=== PATIENT | female | born 1990 | race Caucasian/White ===

== ENCOUNTER 2024-12-19 16:04 | Inpatient (IN) | payer OTHER, SELFPAY ==
--- OUTSIDE RECORDS SUMMARY | 2024-07-10 05:30 | XMS_ITS ---
Author Organization [facility] [address] Address [address] [place] [address] Care Team Providers Care Marketing Assistant Name Role Phone GEORGINA CAMPOS Unavailable [phone] Encounters Encounter Location Date Provider Diagnosis [facility] [address] [place] [address] 07/10/2024 CAMPOS ERICKSON Plan Of Treatment Next Appt Details Provider Name:KAYLIN SAMSON, 12/20/2024 08:45:00 AM, [address], [place], [address], Provider Name:CAMPOS ERICKSON, 12/23/2024 08:45:00 AM, [address], [place], [address], Progress Notes * Juany LAWRENCEOB:1990 (34 yo F)Acc No.[id number]:07/10/2024 Patient: Dandy RACHELRima Provider: Timothy ERICKSON PA-C :1990 A ge:33 Y S ex:Female Date:07/10/2024 Address:[address] [place] [address] Subjective: * Chief Complaints: * * Medical History: Objective: * Vitals: Assessment: Plan: * Treatment: * Images: Billing Information: * Visit Code: * Procedure Codes: * Electronic signature of ROXANA ERICKSON PA-C on 12/19/2024 at 07:02 PM EDT Sign off status: Pending * Provider: Timothy ERICKSON PA-C Date: 0 07/10/2024 Generated for Juanis vasquez/Kevin/Damian on: 0 12/19/2024 07:02 PM EDT
--- OUTSIDE RECORDS SUMMARY | 2024-07-18 06:30 | XMS_ITS ---
Author Organization [facility] [address] Address [address] [place] [address] Care Team Providers Care Car Retarder Operator Name Role Phone CAMPOS ERICKSON Unavailable [phone] Medications Medication SIG (Take, Route, Frequency, Duration) Notes Start Date End Date Status Multivitamin Women - 1 tab Orally daily; Duration: 30 days 03/04/2024 Active Magnesium Glycinate 100 MG 100 mg Orally daily; Duration: 90 days 06/10/2024 Active Probiotic 1-250 BILLION-MG 1 cap Orally daily; Duration: 30 days 06/10/2024 Active Vitamin D3 1.25 MG (37624 UT) 1 capsule Orally weekly; Duration: 90 days 06/10/2024 Active Fish Oil Converse-3 1000 MG 1 capsule Orall y daily; Duration: 30 days 06/10/2024 Active ProAir HFA 108 (90 Base) MCG/ACT 1 puff as needed Inhalation every 4 hrs; Duration: 30 days 01/14/2021 Active Magnesium Glycinate 100 MG 2 tab Orally bedtime; Duration: 30 days 03/04/2024 Active Contrave 8-90 MG WEEK 1: 1 PILL A.M., N/A P.M. WEEK 2: 1 PILL A.M., 1 PILL P.M. WEEK 3: 2 PILLS A.M., 1 PILL P.M. WEEK 4: 2 PILLS A.M., 2 PILLS P.M. Orally Twice a day; Duration: 30 days 06/10/2024 Active Encounters Encounter Location Date Provider Diagnosis [facility] [address] [place] [address] 07/18/2024 CAMPOS ERICKSON Plan Of Treatment Next Appt Details Provider Name:KAYLIN MALI, 12/20/2024 08:45:00 AM, [address], [place], [address], Provider Name:CAMPOS ERICKSON, 12/23/2024 08:45:00 AM, [address], [place], [address], Progress Notes * Juany LAWRENCEOB:1990 (34 yo F)Acc No.[id number]:07/18/2024 CPE Patient: Rima BENOIT Provider: Timothy ERICKSON PA-C :1990 A ge:33 Y S ex:Female Date:07/18/2024 Address:[address] [place] [address] Subjective: * Chief Complaints: * * Medical History: * Medications: T aking ProAir HFA 108 (90 Base) MCG/ACT Aerosol Solution 1 puff as needed Inhalation every 4 hrs , Taking Magnesium Glycinate 100 MG Capsule 2 tab Orally bedtime , Taking Multivitamin Women - Tablet 1 tab Orally daily , Taking Magnesium Glycinate 100 MG Capsule 100 mg Orally daily , Taking Vitamin D3 1.25 MG (50067 UT) Capsule 1 capsule Orally weekly , Taking Fish Oil Converse-3 1000 MG Capsule 1 capsule Orally daily , Taking Probiotic 1-250 BILLION-MG Capsule 1 cap Orally daily , Taking Contrave 8-90 MG Tablet Extended Release 12 Hour WEEK 1: 1 PILL A.M., N/A P.M. WEEK 2: 1 PILL A.M., 1 PILL P.M. WEEK 3: 2 PILLS A.M., 1 PILL P.M. WEEK 4: 2 PILLS A.M., 2 PILLS P.M. Orally Twice a day Objective: * Vitals: Assessment: Plan: * Treatment: * Procedure Codes: 9 9199 NO SHOW OFFICE VISIT * Images: Billing Information: * Visit Code: * Procedure Codes: 44414 NO SHOW OFFICE VISIT. Care Plan Details* * Electronic signature of ROXANA ERICKSON PA-C on 12/19/2024 at 07:02 PM EDT Sign off status: Pending * Provider: Timothy ERICKSON PA-C Date: 0 07/18/2024 Generated for Juanis vasquez/Kevin/Damian on: 0 12/19/2024 07:02 PM EDT
--- OUTSIDE RECORDS SUMMARY | 2024-07-30 10:45 | XMS_ITS ---
Author Organization [facility] [address] [address] Address [address] [place] [address] Care Team Providers Care Transit Specialist Name Role Phone GEORGINA CAMPOS Unavailable [phone] Encounters Encounter Location Date Provider Diagnosis [facility] [address] [place] [address] 07/30/2024 CAMPOS ERICKSON Plan Of Treatment Next Appt Details Provider Name:KAYLIN SAMSON, 12/20/2024 08:45:00 AM, [address], [place], [address], Provider Name:CAMPOS ERICKSON, 12/23/2024 08:45:00 AM, [address], [place], [address], Progress Notes * LAWRENCEEmanuelGeovanyOB:1990 (34 yo F)Acc No.[id number]:07/30/2024 Patient: Rima BENOIT Provider: Timothy ERICKSON PA-C :1990 A ge:33 Y S ex:Female Date:07/30/2024 Address:[address] [place] [address] Subjective: * Chief Complaints: * * Medical History: Objective: * Vitals: Assessment: Plan: * Treatment: * Procedure Codes: 9 9199 NO SHOW OFFICE VISIT * Images: Billing Information: * Visit Code: * Procedure Codes: 53136 NO SHOW OFFICE VISIT. * Electronic signature of ROXANA ERICKSON PA-C on 12/19/2024 at 07:02 PM EDT Sign off status: Pending * Provider: Timothy ERICKSON PA-C Date: 0 07/30/2024 Generated for Juanis vasquez/Kevin/Damian on: 0 12/19/2024 07:02 PM EDT
[2024-12-19] VITALS (10 sets, daily range): BP systolic 95–156; BP diastolic 44–76; PULSE 101–120; RESP 17–26; TEMP 37.2–40.4; O2SAT 95–98; BMI 47.5
--- NOTE | ~2024-12-19 | MR_ITS ---
EXAMINATION: MR BRAIN WITHOUT IV CONTRAST HISTORY: AMS, fever TECHNIQUE: Sagittal T1, and axial T1, FLAIR, T2, gradient echo, and diffusion weighted MR images of the brain were obtained. COMPARISON: Correlation is made with an unenhanced head CT dated 12/19/2024. FINDINGS: The pituitary is normal in size. The cerebellar tonsils are normally located. The brain parenchyma is unremarkable, demonstrating normal arrieta/white differentiation. No foci of abnormal signal intensity are identified. The ventricular system is normal in size and configuration. There is no mass effect or midline shift. No intra or extra-axial fluid collections are identified. There are no foci of restricted diffusion. Normal vascular flow voids are noted in the basilar and carotid arteries. There is a polyp versus mucous retention cyst in the right maxillary sinus. The visualized paranasal sinuses are otherwise clear. MR/MR head/brain wo con IMPRESSION: Unremarkable MRI of the brain without contrast. Electronically signed by: Vinny Holland MD 12/20/2024 12:35 PM EDT
--- NOTE | ~2024-12-19 | XR_ITS ---
CLINICAL HISTORY: ams 1 view chest x-ray Comparison: None provided Findings: No consolidation or effusion. Prominent cardiac silhouette. No acute fracture. IMPRESSION: 1. No acute findings. This document has been electronically signed by: Afshin Rosario MD on 12/19/2024 18:19:41
--- NOTE | ~2024-12-19 | CT_ITS ---
CLINICAL HISTORY: headache CT head without contrast Comparison: None provided Findings: No intra-axial mass, midline shift, hydrocephalus, or acute hemorrhage. Empty sella is demonstrated, nonspecific. No significant atrophy-like change or white matter disease. There is no sinus or mastoid fluid. The orbits are within normal limits. No skull fracture. IMPRESSION: 1. No acute intracranial findings. This document has been electronically signed by: Afshin Rosario MD on 12/19/2024 19:30:10
--- NOTE | ~2024-12-19 | CT_ITS ---
CLINICAL HISTORY: tachy fever sob --- Additional Notes or Special Instructions: r o pe CT angiography chest with contrast. 3D Postprocessing. Comparison: None provided Findings: Motion and streak artifact limit evaluation. The heart is normal size. RV/LV ratio is normal. Unremarkable thoracic aorta and great vessels. No aneurysm. No pulmonary artery filling defects. Diffuse esophageal mural thickening, nonspecific. Mildly prominent axillary nodes may be reactive however are nonspecific Atelectasis.No significant pleural effusion or pneumothorax. Hepatomegaly with steatosis Cholelithiasis. Colonic diverticulosis. No acute fractures. IMPRESSION: No evidence of PE. This document has been electronically signed by: Afshin Rosario MD on 12/19/2024 19:33:14
--- NOTE | 2024-12-19 16:05 | ECG_ITS ---
Test Reason : ALTER MENTAL Blood Pressure : */* mmHG Vent. Rate : 115 BPM Atrial Rate : 115 BPM P-R Int : 150 ms QRS Dur : 80 ms QT Int : 300 ms P-R-T Axes : 72 87 28 degrees QTcB Int : 415 ms Sinus tachycardia Otherwise normal ECG No previous ECGs available Referred By: Generic ED Physician Electronically Signed By: EVELIO PAUL MD
--- NOTE | 2024-12-19 16:11 | ED_ITS ---
HPI - General Adult General Chief complaint: Fever Stated complaint: syncopal episode Time Seen by Provider: 12/19/24 16:10 Source: patient Mode of arrival: ambulatory Limitations: altered mental status History of Present Illness ED Provider: Natalie avina HPI narrative: 34-year-old female here today past medical history PCOS and anxiety. Here today sick 3 days at home came to the hospital was trying to find the emergency department's states her GPS she was lost. She has had a fever and chills chest pain and shortness of breath. She states she has had a headache. No sick contacts at home. Gradual onset of symptoms. Patient also complaining of body aches. Denies any nauseousness or vomiting. Related Data Allergies Allergy/AdvReac Type Severity Reaction Status Date / Time No Known Allergies Allergy Verified 12/19/24 16:09 Review of Systems 2 Review of Systems: Constitutional : + Fever, No Chills ENT/Mouth : No sore throat, No Rhinorrhea Eyes: No Eye Pain, No Swelling, No Redness Cardiovascular : No Chest Pain,+ SOB Respiratory : No Cough, No Sputum Gastrointestinal : No Nausea, No Vomiting, No Diarrhea, No abdominal Pain Genitourinary : No Dysuria, No Hematuria Musculoskeletal : No joint pain, No Myalgias, No Joint Swelling Skin : No Skin Lesions, positive skin rash Neuro : No Weakness, No Numbness, No Headache All other systems reviewed and are negative PMFSH Social History Social History Smoked in Last 30 Days: No Use of substances other than those prescribed or required for medical reasons: No Advance Directives: No Advance Directives Information Provided: Yes Physical Exam ED Exam Exam: Appearance: Alert. Oriented X3. No acute distress. And 104.7. Patient answering questions appropriately Eyes: Pupils equal, round and reactive to light. ENT: Pharynx normal. Neck: Normal inspection. Neck supple. CVS: Tachycardic Pulses normal. Respiratory: No respiratory distress. Breath sounds normal. Abdomen: Soft and nontender. non distender normal BS Skin: Skin warm and dry. Normal skin color. Extremities: No lower extremity edema. No calf ttp FROM of extemities Neuro: Oriented X 3. Vital Signs: Vital Signs - 24 hr 12/19/24 16:07 12/19/24 18:06 12/19/24 18:55 Temperature 104.7 F H 102.5 F H 101.5 F H Pulse Rate 120 H 117 H 103 H Respiratory Rate 20 18 20 Blood Pressure 156/72 H 113/76 110/71 Pulse Oximetry 98 95 97 Oxygen Delivery Method Room Air Room Air Room Air BMI result Body Mass Index 47.5 Medications Administered Discontinued Medications Generic Name Dose Route Start Last Admin Trade Name Freq PRN Reason Stop Dose Admin Ceftriaxone Sodium 2 gm 12/19/24 16:31 12/19/24 16:52 Ceftriaxone Sodium 2 Gm Vial IVPUSH 12/19/24 16:32 2 gm ONCE ONE Administration Lactated Ringer's 3,870 mls @ 3,870 mls/hr 12/19/24 16:23 12/19/24 16:52 Lr 30 ml/kg infuse over 1 hr (3870 ml) 12/19/24 17:22 3,870 mls/hr IV Administration .Q1H ONE Vancomycin HCl 2,000 mg in 500 mls @ 250 mls/hr 12/19/24 16:31 12/19/24 17:54 Vancomycin/Ns IV 12/19/24 18:30 250 mls/hr ONCE ONE Administration Acetaminophen 1,000 mg in 100 mls @ 400 mls/hr 12/19/24 16:47 12/19/24 17:11 Ofirmev IV 12/19/24 17:01 Infused ONCE ONE Infusion Ibuprofen 800 mg 12/19/24 20:13 12/19/24 20:27 Ibuprofen 800 Mg Tablet PO 12/19/24 20:14 800 mg ONCE ONE Administration Iohexol 100 ml 12/19/24 18:48 12/19/24 18:48 Iohexol 350 Mg/Ml 100 Ml Infus..Btl IV 12/19/24 18:49 65 ml ONCE ONE Administration Medical Decision Making Medical Decision Making MDM Narrative: Patient is a 34-year-old female here today with slightly confused on arrival tachycardic and febrile. Who met sepsis protocol. Her white blood cell count is 3. Cooling blanket was applied along with ice packs. She was tachy in the 120s. Blood pressure 156/72. Sepsis protocol low at ordered 30 cc per weight. Patient weighs 129 kg. She is answering questions appropriately. Patient covered for sepsis with ceftriaxone and vancomycin per weight based. Patient awaiting CTA of chest to rule out pneumonia versus PE along with head CT. This patient was altered on arrival. Discussed LP at this time. Patient adamantly declining that she is going to have an LP. Discussed with her we will wait for the other results to come back in and we will review his visit LP if we needed to if we do not find a source of her fever. Patient was cathed UA pending. COVID and flu negative consulted with my supervising physician. Patient's blood pressure is 110/71 heart rate is 103 habit is 101.5 I ordered 800 mg p.o. Motrin. Patient adamantly declining to have a LP. She is alert and oriented at this time in a capacity to make her own decisions. Discussed risk and benefits with patient. She states that she is going to think about it but declining at this time Differential Diagnosis Pneumonia UTI Sepsis PE Meningitis COVID-19 Lab Data 12/19/24 16:42 12/19/24 16:42 Labs: Lab Results 12/19/24 12/19/24 Range/Units 16:42 17:48 WBC 3.0 L (4.8-10.8) X10*3/uL RBC 4.54 (4.20-5.50) X10*6/uL Hgb 12.6 (12.0-16.0) g/dl Hct 37.0 (37.0-47.0) % MCV 81.5 (80.0-98.0) fL MCH 27.8 (27.0-33.0) pg MCHC 34.1 (31.0-35.0) g/dl RDW 13.1 (11.0-16.0) % Plt Count 154 L (160-400) X10*3/uL MPV 12.2 (9.4-12.3) fL Immature Gran % (Auto) 0.3 (0.0-0.4) % Neut % (Auto) 64.8 (45-73) % Lymph % (Auto) 18.8 L (20-40) % [place] % (Auto) 11.1 H (2-11) % Eos % (Auto) 4.7 H (0-4) % Baso % (Auto) 0.3 (0-2) % Lymph # (Auto) 0.6 L (1.2-4.9) X10*3/uL [place] # (Auto) 0.3 (0.1-1.2) X10*3/uL Eos # (Auto) 0.1 (0.0-0.4) X10*3/uL Baso # (Auto) 0.0 (0.0-0.2) X10*3/uL Abs Immat Gran (auto) 0.01 (0.00-0.03) X10*3/uL Absolute Neuts (auto) 1.9 L (2.0-8.3) x10*3/uL Absolute Nucleated RBC 0.000 (0.0-0.012) X10*3/uL Nucleated RBC % (auto) 0.0 (0.0-0.2) /100WBC Sodium 139 (135-145) mmol/L Potassium 4.0 (3.3-5.1) mmol/L Chloride 109 H (96-108) mmol/L Carbon Dioxide 20 L (22-29) mmol/L Anion Gap 14 (12-20) BUN 9 (9-16) mg/dL Creatinine 0.86 (0.5-1.4) mg/dL Estim Creat Clear Calc 123.9 Estimated GFR > 60 Random Glucose 92 (60-115) mg/dL Lactic Acid 1.1 (0.5-2.0) mmol/L Calcium 9.0 (8.4-10.2) mg/dL Total Bilirubin 0.4 (0.0-1.0) mg/dL AST 48 H (5-31) U/L ALT 52 H (0-31) U/L Alkaline Phosphatase 79 (39-117) U/L Troponin I High Sens < 2.7 (<3.5-17.0) ng/L Total Protein 7.5 (6.5-8.0) g/dL Albumin 4.2 (3.5-5.0) g/dL Beta HCG, Quant < 2 mIU/mL Urine Color Yellow Urine Appearance Clear Urine pH 7.0 (5.0-9.0) Ur Specific Serena 1.015 (1.005-1.025) Urine Protein Negative (Neg-Trace) mg/dL Urine Glucose (UA) Negative (Negative) mg/dL Urine Ketones Negative (Negative) mg/dL Urine Blood Negative (Negative) Urine Nitrite Negative (Negative) Ur Leukocyte Esterase Negative (Negative) Urine Test NEGATIVE (NEGATIVE) Urine Opiates Screen Not Detected (Not Detect) Ur Buprenorphine Scrn Not Detected (Not Detect) ng/mL Ur Oxycodone Screen Not Detected (Not Detect) ng/mL Urine Methadone Screen Not Detected (Not Detect) ng/mL Urine Fentanyl Screen Not Detected (Not Detect) Ur Barbiturates Screen Not Detected (Not Detect) Ur Phencyclidine Scrn Not Detected (Not Detect) Ur Amphetamines Screen Not Detected (Not Detect) U Benzodiazepines Scrn Not Detected (Not Detect) Urine Cocaine Screen Not Detected (Not Detect) U Marijuana (THC) Screen Not Detected (Not Detect) Ethyl Alcohol < 10 mg/dL COVID-19 (DEVANTE) Negative (Negative) COVID-19 Clin Com See Note Influenza Type A (PATSY) Negative (Negative) Influenza Type B (PATSY) Negative (Negative) Influenza A & B Note See Note Discharge Plan Discharge Clinical Impression: Fever, Tachycardia, Altered mental status Patient Disposition: Admitted As Inpatient Print Language: Malagasy
[2024-12-19 16:52] LABS: MANUAL DIFF FLAG NO
[2024-12-19] MEDS: LACTATED RINGERS 3870 ML IV (16:52)
[2024-12-19 16:53] LABS: Hematocrit 37.0 % (37.0-47.0); Hemoglobin 12.6 g/dl (12.0-16.0); Imm Gran Abs Auto 0.01 X10*3/uL (0.00-0.03); Imm Gran Pct Auto 0.3 % (0.0-0.4); Lymphocytes Absolute Auto 0.6 X10*3/uL (1.2-4.9); Mean Corpuscular HGB Conc 34.1 g/dl (31.0-35.0); Mean Corpuscular Hemoglobin 27.8 pg (27.0-33.0); Mean Corpuscular Volume 81.5 fL (80.0-98.0); NRBC Abs Auto 0.000 X10*3/uL (0.0-0.012); NRBC Pct Auto 0.0 /100WBC (0.0-0.2); Platelet Count 154 X10*3/uL (160-400); Red Blood Count 4.54 X10*6/uL (4.20-5.50); White Blood Count 3.0 X10*3/uL (4.8-10.8)
[2024-12-19 17:07] LABS: Alanine Aminotransferase 52 U/L (0-31); Albumin Level 4.2 g/dL (3.5-5.0); Alkaline Phosphatase 79 U/L (39-117); Anion Gap 14 (12-20); Aspartate Amino Transferase 48 U/L (5-31); Blood Urea Nitrogen 9 mg/dL (9-16); Calcium 9.0 mg/dL (8.4-10.2); Carbon Dioxide 20 mmol/L (22-29); Chloride 109 mmol/L (96-108); Creatinine Clr Calc Pharmacy 123.9; Estimated Glomerular Filt Rate > 60; Potassium 4.0 mmol/L (3.3-5.1); Sodium 139 mmol/L (135-145); Total Protein 7.5 g/dL (6.5-8.0)
[2024-12-19 17:09] LABS: COVID-19 Test Negative (Negative); IDNOW Serial# 55D5AD1C
[2024-12-19 17:12] LABS: IDNOW Serial# 58CA691E; Influenza B2 Negative (Negative)
--- NOTE | 2024-12-19 17:12 | PC.NURSE ---
patient presents to the ED as outpatient response to hospital lobby, noted to be leaning on window unresponsive. patient noted to have altered mental status, alert to self, place and time but keeps repeating same questions and asking for help. patient noted to be warm and diaphoretic, patient states she has chest pain and a crushing headache x3days. IV access obtained in the patient left hand #22, medicated per JUN. patient placed on cooling blanket for cooling measures and rectal temp of 104.7. additional IV access obtained in the right upper arm #20. labs drawn and obtained. patient noted to be in normal sinus rhythm. straight cath performed by this RN.
[2024-12-19 17:20] LABS: Troponin-I High Sensitivity < 2.7 ng/L (<3.5-17.0)
[2024-12-19] MEDS: vancomycin/NS 2,000 MG/500 ML PLAST..BAG 250 MG IV (17:54)
[2024-12-19 18:08] LABS: Appearance Urine Clear; Glucose Urine UA Negative (Negative); PH 7.0 (5.0-9.0); Specific Gravity - Urine 1.015 (1.005-1.025); UPreg QC Valid YES
[2024-12-19 18:13] LABS: Cannabinoid Screen Urine Not Detected (Not Detect)
[2024-12-19] MEDS: iohexoL 350 MG/ML 100 ML INFUS..BTL IV (18:48)
--- NOTE | 2024-12-19 18:55 | PC.NURSE ---
patient back from ct scan, assisted with bed hein patient voided. patient states she no longer has a headache or chest pain. patient is more alert and oriented, family at bedside for support. patient remains tachycardic low 100s. patient is on cooling blanket, temp 101.5
--- OUTSIDE RECORDS SUMMARY | 2024-12-19 19:03 | XMS_ITS | Clinical Summary ---
Author Organization [facility] Address [address] [address] Phone Care Team Providers Care Roofing Machine Tender Name Role Phone Joel Alonso MD Primary Care Provider Social History Tobacco Use Types Packs/Day Years Used Date Smoking Tobacco: Never Assessed Education Answer Date Recorded Are you interested in more education? Not on ingrid e 08/06/2022 Are you concerned about learning? Not on file 08/06/2022 No 08/06/2022 No 08/06/2022 Digital Access Answer Date Recorded No 09/04/2022 No 09/04/2022 No 09/04/2022 Reliable internet access at home? Not on file 09/04/2022 Device with a working camera? Not on file Comments Unknown Sex and Gender Information Value Date Recorded Sex Assigned at Not on file Legal Sex Female 3:49 PM EST Gender Identity Not on file Sexual Orientation Not on file Plan of Treatment Health Maintenance Due Date Last Done Comments Adult Td,Tdap Booster 1989 DEPRESSION SCREENING 2001 SMOKING Hx and SMOKELESS TOB ACCO SCREENING 2002 HEPATITIS C SCREENING 08/22/2007 HIV ONE-TIME SCREENING (18-6 5 YEARS) 08/22/2007 PAP SMEAR 2010 INFLUENZA VACCINE (#1) 2024 COVID-19 VACCINE (2023-2 5 season) 2024 HEPATITIS A VACCINES Aged Out No long er eligible based on patient's age to complete this topic HIB VACCINES Aged Out No longer eligi ble based on patient's age to complete this topic MENINGOCOCCAL VACCINES (ACWY) Aged Out No longer eligible based on patient's age to complete this topic MENINGOCOCCAL VACCINES (B) Aged Out N o longer eligible based on patient's age to complete this topic PNEUMOCOCCAL VACCINES (0-49 years) Aged Out No longer eligible based on patient's age to complete this topic Medical Devices Not on file Insurance Care Teams Roofing Machine Tender Relationship Specialty Start Date End Date Joel Alonso MD [address] [place] [id number] PCP - General Internal Medicine 06/16/22 Additional Source Comments The information contained in this document represents components of the legal health record. It is not the complete legal health record.[facility]
--- OUTSIDE RECORDS SUMMARY | 2024-12-19 19:03 | XMS_ITS | Patient Health Record ---
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 Metabolic Panel ([id number] Reviewed date:03/14/2024 08:25:36 AM Interpretation: Performing Lab:[facility] [place], [address] [place] [address], [place], Phone - [phone], Director - Rosanne Notes/Report: Test(s) 469821-Pwupxrfupcfv, Total, LC/MS was developed and its performance characteristics determined by [facility]. It has not been cleared or approved by the Food and Drug Administration. Glucose 104 70-99 mg/dL BUN 8 6-20 mg/dL Creatinine 0.75 0.57-1.00 mg/dL eGFR 107 >59 mL/min/1.73 BUN/Creatinine Ratio 11 9-23 Sodium 141 134-144 mmol/L Potassium 4.5 3.5-5.2 mmol/L Chloride 105 96-106 mmol/L Carbon Dioxide, Total 22 20-29 mmol/L Calcium 9.3 8.7-10.2 mg/dL Protein, Total 7.3 6.0-8.5 g/dL Albumin 4.1 3.9-4.9 g/dL Globulin, Total 3.2 1.5-4.5 g/dL Bilirubin, Total 0.5 0.0-1.2 mg/dL Alkaline Phosphatase 97 44-121 IU/L AST (SGOT) 29 0-40 IU/L ALT (SGPT) 32 0-32 IU/L Lipid Panel-[id number] Reviewed date:03/14/2024 08:25:36 AM Interpretation: Performing Lab:[facility] [place], [address] [place] [address], Phone - [phone], Director - Rosanne Notes/Report: Test(s) 390845-Lbpmjxzpzbft, Total, LC/MS was developed and its performance characteristics determined by [facility]. It has not been cleared or approved by the Food and Drug Administration. Cholesterol, Total 219 100-199 mg/dL Triglycerides 152 0-149 mg/dL HDL Cholesterol 44 >39 mg/dL VLDL Cholesterol Adryan 27 5-40 mg/dL LDL Chol Calc (NIH) 148 0-99 mg/dL Vitamin D, 47-Vgvqirl-[id number] Reviewed date:03/14/2024 08:25:36 AM Interpretation: Performing Lab:[facility] [place], [address] [place] [address], Phone - [phone], Director - Rosanne Notes/Report: Test(s) 607018-Fgqtywmkxbca, Total, LC/MS was developed and its performance characteristics determined by [facility]. It has not been cleared or approved by the Food and Drug Administration. Vitamin D, 25-Hydroxy 13.1 30.0-100.0 ng/mL Vitamin D deficiency has been defined by the [place] [employer] and an Endocrine Society practice guideline as a level of serum 25-OH vitamin D less than 20 ng/mL (1,2). The Endocrine Society went on to further define vitamin D insufficiency as a level between 21 and 29 ng/mL (2). 1. IOM ([place] of [employer]). 2010. Dietary reference intakes for calcium and D. [place]: The National Academies Press. 2. Roberto MF, Maco [place], Lauren GONZALES, et al. Evaluation, treatment, and prevention of vitamin D deficiency: an Endocrine Society clinical practice guideline. JCEM. 2010; 96(7):1911-30. Testosterone, Free+Total LC/ MS-[id number] Reviewed date:03/14/2024 08:25:36 AM Interpretation: Performing Lab:[facility] [place], [address] [place] [address], [place], Phone - [phone], Director - Rosanne Notes/Report: Test(s) 965173-Vmpkpaaobmgo, Total, LC/MS was developed and its performance characteristics determined by [facility]. It has not been cleared or approved by the Food and Drug Administration. Testosterone, Total, LC/MS 20.9 10.0-55.0 ng/d L Free Testosterone(Direct) 0.7 0.0-4.2 pg/mL CBC With Differential/Platel et-[id number] Reviewed date:03/14/2024 08:25:36 AM Interpretation: Performing Lab:[facility], [address] [place] [address], [place], Phone - [phone], Director - Rosanne Notes/Report: Test(s) 369936-Ooqjitvjhnbs, Total, LC/MS was developed and its performance characteristics determined by [facility]. It has not been cleared or approved by the Food and Drug Administration. WBC 7.1 3.4-10.8 x10E3/uL Effective March 11, 2024 profile [id number] WBC will be made non-orderable as a stand-alone order code. RBC 4.49 3.77-5.28 x10E6/uL Hemoglobin 12.7 11.1-15.9 g/dL Hematocrit 40.3 34.0-46.6 % MCV 90 79-97 fL MCH 28.3 26.6-33.0 pg MCHC 31.5 31.5-35.7 g/dL RDW 13.3 11.7-15.4 % Platelets 218 150-450 x10E3/uL Neutrophils 61 Not Estab. % Lymphs 31 Not Estab. % Monocytes 5 Not Estab. % Eos 3 Not Estab. % Basos 0 Not Estab. % Neutrophils (Absolute) 4.3 1.4-7.0 x10E3/uL Lymphs (Absolute) 2.2 0.7-3.1 x10E3/uL Monocytes(Absolute) 0.3 0.1-0.9 x10E3/uL Eos (Absolute) 0.2 0.0-0.4 x10E3/uL Baso (Absolute) 0.0 0.0-0.2 x10E3/uL Immature Granulocytes 0 Not Estab. % Immature Grans (Abs) 0.0 0.0-0.1 x10E3/uL Estradiol-067574 Reviewed date:03/14/2024 08:25:36 AM Interpretation: Performing Lab:[facility] [address], Phone - [phone], Director - [facility] Notes/Report: Test(s) 609032-Cyrvxirikyha, Total, LC/MS was developed and its performance characteristics determined by [facility]. It has not been cleared or approved by the Food and Drug Administration. Estradiol 24.8 Adult Female Range Follicular phase 12.5 - 166.0 Ovulation phase 85.8 - 498.0 Luteal phase 43.8 - 211.0 Postmenopausal <6.0 - 54.7 1st trimester 215.0 - >4300.0 Abimael ECLIA methodology Insulin-[id number] Reviewed date:03/14/2024 08:25:36 AM Interpretation: Performing Lab:[facility], Phone - [phone], Director - [facility] Notes/Report: Test(s) 596315-Vrefijmwhwuu, Total, LC/MS was developed and its performance characteristics determined by [facility]. It has not been cleared or approved by the Food and Drug Administration. Insulin 30.2 2.6-24.9 uIU/mL Progesterone-687724 Reviewed date:03/14/2024 08:24:50 AM Interpretation: Performing Lab:[facility], Phone - [phone], Director - [facility] Notes/Report: Test(s) 670178-Qkefghycdutf, Total, LC/MS was developed and its performance characteristics determined by [facility]. It has not been cleared or approved by the Food and Drug Administration. Progesterone 0.3 Follicular phase 0.1 - 0.9 Luteal phase 1.8 - 23.9 Ovulation phase 0.1 - 12.0 First trimester 11.0 - 44.3 Second trimester 25.4 - 83.3 Third trimester 58.7 - 214.0 Postmenopausal 0.0 - 0.1 TSH-[id number] Reviewed date:03/14/2024 08:25:36 AM Interpretation: Performing Lab:[facility] [address], Phone - [phone], Director - [facility] Notes/Report: Test(s) 707788-Mwsasmwlqmlk, Total, LC/MS was developed and its performance characteristics determined by [facility]. It has not been cleared or approved by the Food and Drug Administration. TSH 2.320 0.450-4.500 uIU/mL Urinalysis, Complete-[id number] Reviewed date:03/14/2024 08:25:36 AM Interpretation: Performing Lab:[facility] [address], Phone - [phone], Director - Rosanne Notes/Report: Test(s) 747387-Aemnhtqafwhu, Total, LC/MS was developed and its performance characteristics determined by [facility]. It has not been cleared or approved by the Food and Drug Administration. Test(s) 790736-Naemorpbtzzm, Total, LC/MS was developed and its performance characteristics determined by [facility]. It has not been cleared or approved by the Food and Drug Administration. Specific [place] 1.015 1.005-1.030 pH 6.0 5.0-7.5 Urine-Color Yellow Yellow Appearance Clear Clear WBC Esterase Negative Negative Protein Negative Negative/Trace Glucose Negative Negative Ketones Negative Negative Occult Blood Negative Negative Bilirubin Negative Negative Urobilinogen,Semi-Qn 0.2 0.2-1.0 mg/dL Nitrite, Urine Negative Negative Microscopic Examination Micr oscopic follows if indicated. Microscopic Examination See below: Micr oscopic was indicated and was performed. WBC None seen 0 - 5 /hpf RBC None seen 0 - 2 /hpf Epithelial Cells (non renal) 0-10 0 - 10 /hpf Casts None seen None seen /lpf Bacteria Few None seen/Few Hemoglobin P8p-[id number] Reviewed date:03/14/2024 08:25:36 AM Interpretation: Performing Lab:[facility] [address], [place], Phone - [phone], Director - Rosanne Notes/Report: Test(s) 219529-Qnltecebxfiw, Total, LC/MS was developed and its performance characteristics determined by [facility]. It has not been cleared or approved by the Food and Drug Administration. Hemoglobin A1c 5.8 4.8-5.6 % . 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 She provided the office phone number: [phone], sander desouza 06/06/2024 11:37:40 AM >fax # [email or web address] [phone], Winnie Wilkerson 06/07/2024 09:58:38 AM >Faxed labs, notes and referral to pt as well, Serjio Dunhamlam 06/13/2024 02:30:37 PM > I called the office, and they informed me that they have reached out to the patient, but she has not returned their call to schedule an appointment. Referral Priority Routine Medications Medication SIG (Take, Route, Frequency, Duration) Notes Start Date End Date Status Multivitamin Women - 1 tab Orally daily; Duration: 30 days 03/04/2024 Active Magnesium Glycinate 100 MG 100 mg Orally daily; Duration: 90 days 06/10/2024 Active ProAir HFA 108 (90 [...] a day; Duration: 30 days 06/10/2024 Active Probiotic 1-250 BILLION-MG 1 cap Orally daily; Duration: 30 days 06/10/2024 Active Vitamin D3 1.25 MG (20864 UT) 1 capsule Orally weekly; Duration: 90 days 06/10/2024 Active Fish Oil [place]-3 1000 MG 1 capsule Orall y daily; Duration: 30 days 06/10/2024 Active Social History Tobacco Use: Social History Observation Description Date Details (start date - stop date) Never Smoker NA - NA Tobacco Use/Smoking Question Answer Notes Are you a nonsmoker Section Notes: Declines tobacco use 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 Declines tobacco use Declines tobacco use Declines tobacco 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 Declines tobacco use Declines tobacco use 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 Problems Problem Type SNOMED Code ICD Code Onset Dates Problem Status W/U Status Risk Notes Problem Vitamin D deficiency (42338203) Vitamin D deficiency, unspecified (E55.9) Active confirmed Problem Status migrainosus (235620425) Migraine, unspecified, not intractable, with status migrainosus (G43.901) Active confirmed Problem Endocrine/metabolic screening (583993460) Encounter for screening for other suspected endocrine disorder (Z13.29) Active confirmed Problem Morbid obesity (195353390) Morbid obesity (E66.01) Active confirmed Problem Fatigue (06301148) Fatigue, unspecified type (R53.83) Active confirmed Problem Vitamin D deficiency (63171943) Vitamin D deficiency (E55.9) Active confirmed Problem COVID-19 (556793708) COVID-19 (U07.1) Active confirmed Problem Body mass index 40+ - severely obese (982233803) Body mass index [BMI] 45.0-49.9, adult (Z68.42) Active confirmed Problem Hyperinsulinemia (79479688) Hyperinsulinemia (E16.1) Active confirmed Problem Polycystic ovary syndrome (disorder) (989407438) PCOS (polycystic ovarian syndrome) (E28.2) Active confirmed Problem Body mass index 40+ - severely obese (601547741) BMI 45.0-49.9, adult (Z68.42) Active confirmed Problem Body mass index 40+ - severely obese (838161659) Body mass index [BMI] 40.0-44.9, adult (Z68.41) Active confirmed Problem Insulin resistance (516520719) Insulin resistance (E88.81) Active confirmed Problem Asthma (710873327) Asthma (J45.909) Active conf irmed Problem Morbid obesity (203897848) Obesity, Class III, BMI 40-49.9 (morbid obesity) (E66.01) Active confirmed Problem Insulin resistance (936570995) Insulin resistance (E88.819) Active confirmed Problem Migraine variant with headache (disorder) (189217507) Migraine headache (G43.909) Active confirmed Vital Signs Heart Rate 94 /min 06/10/2024 Blood pressure diastolic 74 mm Hg 06/10/2024 Oximetry 94 % 06/10/2024 Height 64 in 06/10/2024 Blood pressure systolic 124 mm Hg 06/10/2024 Weight 277.2 lbs 06/10/2024 BMI 47.58 kg/m2 06/10/2024 Encounters Encounter Location Date Provider Diagnosis [facility] [address] [place] [address] 07/30/2024 CAMPOS ERICKSON [facility] [address] [place], [place] 03/04/2024 CAMPOS ERICKSON Morbid obesity E66.0 1 ; Obesity, Class III, BMI 40-49.9 (morbid obesity) E66.01 ; Insulin resistance E88.819 ; PCOS (polycystic ovarian syndrome) E28.2 and Migraine headache G43.[address] [facility] [address] [place] [address] 06/10/2024 CAMPOS ERICKSON Morbid obesity E66.0 1 ; Obesity, Class III, BMI 40-49.9 (morbid obesity) E66.01 ; Insulin resistance E88.819 ; PCOS (polycystic ovarian syndrome) E28.2 ; Migraine headache G43.909 and Vitamin D deficiency E55.[address] [facility] [address] [place] [address] 01/17/2024 KOKO MULLEN [facility] [address] [place] [address] 02/27/2024 KOKO MULLEN [facility] [address] [facility] [address] [place] [address] 06/06/2024 CAMPOS ERICKSON [facility] [address] [place] [address] 06/07/2024 CAMPOS ERICKSON PCOS (polycystic ovarian syndrome) E28.2 ; Morbid obesity E66.01 ; Vitamin D deficiency, unspecified E55.9 and Adult general medical exam Z00.00 [facility] [address] [facility] [address] [place] [address] 06/11/2024 CAMPOS ERICKSON PCOS (polycystic ovarian syndrome) E28.2 [facility] [address] [facility] [address] [place] [address] 06/12/2024 CAMPOS ERICKSON [facility] [address] [place] [address] 07/16/2024 CAMPOS ERICKSON [facility] [address] [address] 07/31/2024 CAMPOS ERICKSON [facility] [address] [place] [address] 12/18/2024 CAMPOS ERICKSON Assessments Encounter Date Diagnosis (ICD Code) Assessment Notes Treatment Notes Treatment Clinical Notes Section Notes 03/04/2024 Morbid obesity (ICD-10 - E66.01) #Morbid obesity. 260.4 pounds, BMI 43.9. Reviewed updated ceca scale in the office today. Discussed medical weight loss options in detail with patient. She was previously prescribed phentermine but never started it. She did have been updated normal EKG with Dr. Alonso recently. Discussed risk benefits adverse effects of phentermine in detail with patient. Advised to start and if she is having any side effects can stop as it is a short acting medication. Encouraged to stay well-hydrated and avoid additional caffeine while on phentermine. We did discuss lifestyle modifications in detail. Discussed importance of protein intake with a goal of 80 to 100 g a day. Advised to start regular exercise regimen with some resistance training. We also discussed the importance of water intake. Discussed importance of getting her updated labs which she will do prior to her follow-up in 1 month. Plan to review at that visit. We also discussed option of injectable weight loss medications if she does not tolerate the phentermine. Will discuss further at her follow-up visit. #PCOS. Previously on metformin however had side effects. CHeck insulin level/hba1C. #Insulin resistance. Will get updated labs and follow-up pending results. #Headaches. Suspect migraines. Encouraged to re-start Topamax and keep headache log. Continue Qulipta. The patient will continue exercise regimen with an emphasis on improving/increasing steps to at least 6,000-10,000 steps per day. Increasing cardio and strength training exercises as tolerated to improve weight loss and work on building muscle mass. Patient is committed to smarter eating with calorie counting and mindful eating. Limiting processed foods and carbohydrates and increasing leafy greens and lean proteins as well as fruits into their diet. Patient was counseled on the importance of eating local, organic food when possible. Patient has been counseled regarding effects of GLP/GIP-1 agonists and other FDA approved weight loss medications with regards to a multifactorial approach of weight loss as mentioned above and that the medication alone will not be sufficient to meet patients goals. We discussed holistic medication approach with emphasis on lifestyle modification. Discussed obesity as it increases risk of diabetes, cardiovascular disease, and/or organ damage. We spent a lot of time discussing the relationship between food, exercise, sleep, mental health, and obesity. We discussed the importance of having SECAs done every visit and having accountability done during these visits. That the scale is done to monitor not only weight loss but the body composition during medication management and healthy lifestyle changes. We discussed that if the patient is unable at times to financially afford this scale that we would rather waive the fee and have the scale done than have the patient not have the scale obtained. Will follow up with the patient in 4 weeks time to monitor weight loss. Total time was 30 min, greater than 50 % of time was spent on care coordination Case discussed with collaborating physician Leonie Alonso who reviewed the assessment and plan. Chart, medications, labs, vital signs reviewed. Dictation was accomplished with the use of [employer] voice recognition software, prone to medical misidentifications and grammatical errors. This is unintentional and the practitioner does try to identify and correct these, but some could still be present. Please do not hesitate to contact practitioner for clarification. All questions answered to patients satisfaction. Patient verbalized understanding of diagnosis and treatments explained. To call sooner prior to next visit it any questions/concerns arise. 03/04/2024 Obesity, Class III, BMI 40-49.9 (morbid obesity) (ICD-10 - E66.01) #Morbid obesity. 260.4 pounds, BMI 43.9. Reviewed updated ceca scale in the office today. Discussed medical weight loss options in detail with patient. She was previously prescribed phentermine but never started it. She did have been updated normal EKG with Dr. Alonso recently. Discussed risk benefits adverse effects of phentermine in detail with patient. Advised to start and if she is having any side effects can stop as it is a short acting medication. Encouraged to stay well-hydrated and avoid additional caffeine while on phentermine. We did discuss lifestyle modifications in detail. Discussed importance of protein intake with a goal of 80 to 100 g a day. Advised to start regular exercise regimen with some resistance training. We also discussed the importance of water intake. Discussed importance of getting her updated labs which she will do prior to her follow-up in 1 month. Plan to review at that visit. We also discussed option of injectable weight loss medications if she does not tolerate the phentermine. Will discuss further at her follow-up visit. #PCOS. Previously on metformin however had side effects. CHeck insulin level/hba1C. #Insulin resistance. Will get updated labs and follow-up pending results. #Headaches. Suspect migraines. Encouraged to re-start Topamax and keep headache log. Continue Qulipta. The patient will continue exercise regimen with an emphasis on improving/increasing steps to at least 6,000-10,000 steps per day. Increasing cardio and strength training exercises as tolerated to improve weight loss and work on building muscle mass. Patient is committed to smarter eating with calorie counting and mindful eating. Limiting processed foods and carbohydrates and increasing leafy greens and lean proteins as well as fruits into their diet. Patient was counseled on the importance of eating local, organic food when possible. Patient has been counseled regarding effects of GLP/GIP-1 agonists and other FDA approved weight loss medications with regards to a multifactorial approach of weight loss as mentioned above and that the medication alone will not be sufficient to meet patients goals. We discussed holistic medication approach with emphasis on lifestyle modification. Discussed obesity as it increases risk of diabetes, cardiovascular disease, and/or organ damage. We spent a lot of time discussing the relationship between food, exercise, sleep, mental health, and obesity. We discussed the importance of having SECAs done every visit and having accountability done during these visits. That the scale is done to monitor not only weight loss but the body composition during medication management and healthy lifestyle changes. We discussed that if the patient is unable at times to financially afford this scale that we would rather waive the fee and have the scale done than have the patient not have the scale obtained. Will follow up with the patient in 4 weeks time to monitor weight loss. Total time was 30 min, greater than 50 % of time was spent on care coordination Case discussed with collaborating physician Leonie Alonso who reviewed the assessment and plan. Chart, medications, labs, vital signs reviewed. Dictation was accomplished with the use of [employer] voice recognition software, prone to medical misidentifications and grammatical errors. This is unintentional and the practitioner does try to identify and correct these, but some could still be present. Please do not hesitate to contact practitioner for clarification. All questions answered to patients satisfaction. Patient verbalized understanding of diagnosis and treatments explained. To call sooner prior to next visit it any questions/concerns arise. 06/07/2024 PCOS (polycystic ovarian syndrome) (ICD-10 - E28.2) 06/10/2024 Morbid obesity (ICD-10 - E66.01) #Morbid obesity. 260.4 pounds, BMI 43.9. Reviewed updated ceca scale in the office today. Discussed medical weight loss options in detail with patient. She was previously prescribed phentermine but never started it. She did have been updated normal EKG with Dr. Alonso recently. Discussed risk benefits adverse effects of phentermine in detail with patient. Advised to start and if she is having any side effects can stop as it is a short acting medication. Encouraged to stay well-hydrated and avoid additional caffeine while on phentermine. We did discuss lifestyle modifications in detail. Discussed importance of protein intake with a goal of 80 to 100 g a day. Advised to start regular exercise regimen with some resistance training. We also discussed the importance of water intake. Discussed importance of getting her updated labs which she will do prior to her follow-up in 1 month. Plan to review at that visit. We also discussed option of injectable weight loss medications if she does not tolerate the phentermine. Will discuss further at her follow-up visit. #PCOS. Previously on metformin however had side effects. Insulin level 30, HbA1C 5.8. Discussed GLP-1 #Headaches. Suspect migraines. Encouraged to re-start Topamax and keep headache log. Continue Qulipta. # Low VIt D> Start VIt D 1.25 mg po weekly x 6-8 weeks. Retest. The patient will continue exercise regimen with an emphasis on improving/increasing steps to at least 6,000-10,000 steps per day. Increasing cardio and strength training exercises as tolerated to improve weight loss and work on building muscle mass. Patient is committed to smarter eating with calorie counting and mindful eating. Limiting processed foods and carbohydrates and increasing leafy greens and lean proteins as well as fruits into their diet. Patient was counseled on the importance of eating local, organic food when possible. Patient has been counseled regarding effects of GLP/GIP-1 agonists and other FDA approved weight loss medications with regards to a multifactorial approach of weight loss as mentioned above and that the medication alone will not be sufficient to meet patients goals. We discussed holistic medication approach with emphasis on lifestyle modification. Discussed obesity as it increases risk of diabetes, cardiovascular disease, and/or organ damage. We spent a lot of time discussing the relationship between food, exercise, sleep, mental health, and obesity. We discussed the importance of having SECAs done every visit and having accountability done during these visits. That the scale is done to monitor not only weight loss but the body composition during medication management and healthy lifestyle changes. We discussed that if the patient is unable at times to financially afford this scale that we would rather waive the fee and have the scale done than have the patient not have the scale obtained. Will follow up with the patient in 4 weeks time to monitor weight loss. Total time was 30 min, greater than 50 % of time was spent on care coordination Case discussed with collaborating physician Leonie Alonso who reviewed the assessment and plan. Chart, medications, labs, vital signs reviewed. Dictation was accomplished with the use of [employer] voice recognition software, prone to medical misidentifications and grammatical errors. This is unintentional and the practitioner does try to identify and correct these, but some could still be present. Please do not hesitate to contact practitioner for clarification. All questions answered to patients satisfaction. Patient verbalized understanding of diagnosis and treatments explained. To call sooner prior to next visit it any questions/concerns arise. 06/10/2024 Obesity, Class III, BMI 40-49.9 (morbid obesity) (ICD-10 - E66.01) #Morbid obesity. 260.4 pounds, BMI 43.9. Reviewed updated ceca scale in the office today. Discussed medical weight loss options in detail with patient. She was previously prescribed phentermine but never started it. She did have been updated normal EKG with Dr. Alonso recently. Discussed risk benefits adverse effects of phentermine in detail with patient. Advised to start and if she is having any side effects can stop as it is a short acting medication. Encouraged to stay well-hydrated and avoid additional caffeine while on phentermine. We did discuss lifestyle modifications in detail. Discussed importance of protein intake with a goal of 80 to 100 g a day. Advised to start regular exercise regimen with some resistance training. We also discussed the importance of water intake. Discussed importance of getting her updated labs which she will do prior to her follow-up in 1 month. Plan to review at that visit. We also discussed option of injectable weight loss medications if she does not tolerate the phentermine. Will discuss further at her follow-up visit. #PCOS. Previously on metformin however had side effects. Insulin level 30, HbA1C 5.8. Discussed GLP-1 #Headaches. Suspect migraines. Encouraged to re-start Topamax and keep headache log. Continue Qulipta. # Low VIt D> Start VIt D 1.25 mg po weekly x 6-8 weeks. Retest. The patient will continue exercise regimen with an emphasis on improving/increasing steps to at least 6,000-10,000 steps per day. Increasing cardio and strength training exercises as tolerated to improve weight loss and work on building muscle mass. Patient is committed to smarter eating with calorie counting and mindful eating. Limiting processed foods and carbohydrates and increasing leafy greens and lean proteins as well as fruits into their diet. Patient was counseled on the importance of eating local, organic food when possible. Patient has been counseled regarding effects of GLP/GIP-1 agonists and other FDA approved weight loss medications with regards to a multifactorial approach of weight loss as mentioned above and that the medication alone will not be sufficient to meet patients goals. We discussed holistic medication approach with emphasis on lifestyle modification. Discussed obesity as it increases risk of diabetes, cardiovascular disease, and/or organ damage. We spent a lot of time discussing the relationship between food, exercise, sleep, mental health, and obesity. We discussed the importance of having SECAs done every visit and having accountability done during these visits. That the scale is done to monitor not only weight loss but the body composition during medication management and healthy lifestyle changes. We discussed that if the patient is unable at times to financially afford this scale that we would rather waive the fee and have the scale done than have the patient not have the scale obtained. Will follow up with the patient in 4 weeks time to monitor weight loss. Total time was 30 min, greater than 50 % of time was spent on care coordination Case discussed with collaborating physician Leonie lAonso who reviewed the assessment and plan. Chart, medications, labs, vital signs reviewed. Dictation was accomplished with the use of [employer] voice recognition software, prone to medical misidentifications and grammatical errors. This is unintentional and the practitioner does try to identify and correct these, but some could still be present. Please do not hesitate to contact practitioner for clarification. All questions answered to patients satisfaction. Patient verbalized understanding of diagnosis and treatments explained. To call sooner prior to next visit it any questions/concerns arise. 06/11/2024 PCOS (polycystic ovarian syndrome) (ICD-10 - E28.2) 06/10/2024 Insulin resistance (ICD-10 - E88.819) #Morbid obesity. 260.4 pounds, BMI 43.9. Reviewed updated ceca scale in the office today. Discussed medical weight loss options in detail with patient. She was previously prescribed phentermine but never started it. She did have been updated normal EKG with Dr. Alonso recently. Discussed risk benefits adverse effects of phentermine in detail with patient. Advised to start and if she is having any side effects can stop as it is a short acting medication. Encouraged to stay well-hydrated and avoid additional caffeine while on phentermine. We did discuss lifestyle modifications in detail. Discussed importance of protein intake with a goal of 80 to 100 g a day. Advised to start regular exercise regimen with some resistance training. We also discussed the importance of water intake. Discussed importance of getting her updated labs which she will do prior to her follow-up in 1 month. Plan to review at that visit. We also discussed option of injectable weight loss medications if she does not tolerate the phentermine. Will discuss further at her follow-up visit. #PCOS. Previously on metformin however had side effects. Insulin level 30, HbA1C 5.8. Discussed GLP-1 #Headaches. Suspect migraines. Encouraged to re-start Topamax and keep headache log. Continue Qulipta. # Low VIt D> Start VIt D 1.25 mg po weekly x 6-8 weeks. Retest. The patient will continue exercise regimen with an emphasis on improving/increasing steps to at least 6,000-10,000 steps per day. Increasing cardio and strength training exercises as tolerated to improve weight loss and work on building muscle mass. Patient is committed to smarter eating with calorie counting and mindful eating. Limiting processed foods and carbohydrates and increasing leafy greens and lean proteins as well as fruits into their diet. Patient was counseled on the importance of eating local, organic food when possible. Patient has been counseled regarding effects of GLP/GIP-1 agonists and other FDA approved weight loss medications with regards to a multifactorial approach of weight loss as mentioned above and that the medication alone will not be sufficient to meet patients goals. We discussed holistic medication approach with emphasis on lifestyle modification. Discussed obesity as it increases risk of diabetes, cardiovascular disease, and/or organ damage. We spent a lot of time discussing the relationship between food, exercise, sleep, mental health, and obesity. We discussed the importance of having SECAs done every visit and having accountability done during these visits. That the scale is done to monitor not only weight loss but the body composition during medication management and healthy lifestyle changes. We discussed that if the patient is unable at times to financially afford this scale that we would rather waive the fee and have the scale done than have the patient not have the scale obtained. Will follow up with the patient in 4 weeks time to monitor weight loss. Total time was 30 min, greater than 50 % of time was spent on care coordination Case discussed with collaborating physician Leonie Alonso who reviewed the assessment and plan. Chart, medications, labs, vital signs reviewed. Dictation was accomplished with the use of [employer] voice recognition software, prone to medical misidentifications and grammatical errors. This is unintentional and the practitioner does try to identify and correct these, but some could still be present. Please do not hesitate to contact practitioner for clarification. All questions answered to patients satisfaction. Patient verbalized understanding of diagnosis and treatments explained. To call sooner prior to next visit it any questions/concerns arise. 06/07/2024 Morbid obesity (ICD-10 - E66.01) 03/04/2024 Insulin resistance (ICD-10 - E88.819) #Morbid obesity. 260.4 pounds, BMI 43.9. Reviewed updated ceca scale in the office today. Discussed medical weight loss options in detail with patient. She was previously prescribed phentermine but never started it. She did have been updated normal EKG with Dr. Alonso recently. Discussed risk benefits adverse effects of phentermine in detail with patient. Advised to start and if she is having any side effects can stop as it is a short acting medication. Encouraged to stay well-hydrated and avoid additional caffeine while on phentermine. We did discuss lifestyle modifications in detail. Discussed importance of protein intake with a goal of 80 to 100 g a day. Advised to start regular exercise regimen with some resistance training. We also discussed the importance of water intake. Discussed importance of getting her updated labs which she will do prior to her follow-up in 1 month. Plan to review at that visit. We also discussed option of injectable weight loss medications if she does not tolerate the phentermine. Will discuss further at her follow-up visit. #PCOS. Previously on metformin however had side effects. CHeck insulin level/hba1C. #Insulin resistance. Will get updated labs and follow-up pending results. #Headaches. Suspect migraines. Encouraged to re-start Topamax and keep headache log. Continue Qulipta. The patient will continue exercise regimen with an emphasis on improving/increasing steps to at least 6,000-10,000 steps per day. Increasing cardio and strength training exercises as tolerated to improve weight loss and work on building muscle mass. Patient is committed to smarter eating with calorie counting and mindful eating. Limiting processed foods and carbohydrates and increasing leafy greens and lean proteins as well as fruits into their diet. Patient was counseled on the importance of eating local, organic food when possible. Patient has been counseled regarding effects of GLP/GIP-1 agonists and other FDA approved weight loss medications with regards to a multifactorial approach of weight loss as mentioned above and that the medication alone will not be sufficient to meet patients goals. We discussed holistic medication approach with emphasis on lifestyle modification. Discussed obesity as it increases risk of diabetes, cardiovascular disease, and/or organ damage. We spent a lot of time discussing the relationship between food, exercise, sleep, mental health, and obesity. We discussed the importance of having SECAs done every visit and having accountability done during these visits. That the scale is done to monitor not only weight loss but the body composition during medication management and healthy lifestyle changes. We discussed that if the patient is unable at times to financially afford this scale that we would rather waive the fee and have the scale done than have the patient not have the scale obtained. Will follow up with the patient in 4 weeks time to monitor weight loss. Total time was 30 min, greater than 50 % of time was spent on care coordination Case discussed with collaborating physician Leonie Alonso who reviewed the assessment and plan. Chart, medications, labs, vital signs reviewed. Dictation was accomplished with the use of [employer] voice recognition software, prone to medical misidentifications and grammatical errors. This is unintentional and the practitioner does try to identify and correct these, but some could still be present. Please do not hesitate to contact practitioner for clarification. All questions answered to patients satisfaction. Patient verbalized understanding of diagnosis and treatments explained. To call sooner prior to next visit it any questions/concerns arise. 03/04/2024 PCOS (polycystic ovarian syndrome) (ICD-10 - E28.2) #Morbid obesity. 260.4 pounds, BMI 43.9. Reviewed updated ceca scale in the office today. Discussed medical weight loss options in detail with patient. She was previously prescribed phentermine but never started it. She did have been updated normal EKG with Dr. Alonso recently. Discussed risk benefits adverse effects of phentermine in detail with patient. Advised to start and if she is having any side effects can stop as it is a short acting medication. Encouraged to stay well-hydrated and avoid additional caffeine while on phentermine. We did discuss lifestyle modifications in detail. Discussed importance of protein intake with a goal of 80 to 100 g a day. Advised to start regular exercise regimen with some resistance training. We also discussed the importance of water intake. Discussed importance of getting her updated labs which she will do prior to her follow-up in 1 month. Plan to review at that visit. We also discussed option of injectable weight loss medications if she does not tolerate the phentermine. Will discuss further at her follow-up visit. #PCOS. Previously on metformin however had side effects. CHeck insulin level/hba1C. #Insulin resistance. Will get updated labs and follow-up pending results. #Headaches. Suspect migraines. Encouraged to re-start Topamax and keep headache log. Continue Qulipta. The patient will continue exercise regimen with an emphasis on improving/increasing steps to at least 6,000-10,000 steps per day. Increasing cardio and strength training exercises as tolerated to improve weight loss and work on building muscle mass. Patient is committed to smarter eating with calorie counting and mindful eating. Limiting processed foods and carbohydrates and increasing leafy greens and lean proteins as well as fruits into their diet. Patient was counseled on the importance of eating local, organic food when possible. Patient has been counseled regarding effects of GLP/GIP-1 agonists and other FDA approved weight loss medications with regards to a multifactorial approach of weight loss as mentioned above and that the medication alone will not be sufficient to meet patients goals. We discussed holistic medication approach with emphasis on lifestyle modification. Discussed obesity as it increases risk of diabetes, cardiovascular disease, and/or organ damage. We spent a lot of time discussing the relationship between food, exercise, sleep, mental health, and obesity. We discussed the importance of having SECAs done every visit and having accountability done during these visits. That the scale is done to monitor not only weight loss but the body composition during medication management and healthy lifestyle changes. We discussed that if the patient is unable at times to financially afford this scale that we would rather waive the fee and have the scale done than have the patient not have the scale obtained. Will follow up with the patient in 4 weeks time to monitor weight loss. Total time was 30 min, greater than 50 % of time was spent on care coordination Case discussed with collaborating physician Leonie Alonso who reviewed the assessment and plan. Chart, medications, labs, vital signs reviewed. Dictation was accomplished with the use of [employer] voice recognition software, prone to medical misidentifications and grammatical errors. This is unintentional and the practitioner does try to identify and correct these, but some could still be present. Please do not hesitate to contact practitioner for clarification. All questions answered to patients satisfaction. Patient verbalized understanding of diagnosis and treatments explained. To call sooner prior to next visit it any questions/concerns arise. 06/07/2024 Vitamin D deficiency, unspecified (ICD-10 - E55.9) 06/10/2024 PCOS (polycystic ovarian syndrome) (ICD-10 - E28.2) #Morbid obesity. 260.4 pounds, BMI 43.9. Reviewed updated ceca scale in the office today. Discussed medical weight loss options in detail with patient. She was previously prescribed phentermine but never started it. She did have been updated normal EKG with Dr. Alonso recently. Discussed risk benefits adverse effects of phentermine in detail with patient. Advised to start and if she is having any side effects can stop as it is a short acting medication. Encouraged to stay well-hydrated and avoid additional caffeine while on phentermine. We did discuss lifestyle modifications in detail. Discussed importance of protein intake with a goal of 80 to 100 g a day. Advised to start regular exercise regimen with some resistance training. We also discussed the importance of water intake. Discussed importance of getting her updated labs which she will do prior to her follow-up in 1 month. Plan to review at that visit. We also discussed option of injectable weight loss medications if she does not tolerate the phentermine. Will discuss further at her follow-up visit. #PCOS. Previously on metformin however had side effects. Insulin level 30, HbA1C 5.8. Discussed GLP-1 #Headaches. Suspect migraines. Encouraged to re-start Topamax and keep headache log. Continue Qulipta. # Low VIt D> Start VIt D 1.25 mg po weekly x 6-8 weeks. Retest. The patient will continue exercise regimen with an emphasis on improving/increasing steps to at least 6,000-10,000 steps per day. Increasing cardio and strength training exercises as tolerated to improve weight loss and work on building muscle mass. Patient is committed to smarter eating with calorie counting and mindful eating. Limiting processed foods and carbohydrates and increasing leafy greens and lean proteins as well as fruits into their diet. Patient was counseled on the importance of eating local, organic food when possible. Patient has been counseled regarding effects of GLP/GIP-1 agonists and other FDA approved weight loss medications with regards to a multifactorial approach of weight loss as mentioned above and that the medication alone will not be sufficient to meet patients goals. We discussed holistic medication approach with emphasis on lifestyle modification. Discussed obesity as it increases risk of diabetes, cardiovascular disease, and/or organ damage. We spent a lot of time discussing the relationship between food, exercise, sleep, mental health, and obesity. We discussed the importance of having SECAs done every visit and having accountability done during these visits. That the scale is done to monitor not only weight loss but the body composition during medication management and healthy lifestyle changes. We discussed that if the patient is unable at times to financially afford this scale that we would rather waive the fee and have the scale done than have the patient not have the scale obtained. Will follow up with the patient in 4 weeks time to monitor weight loss. Total time was 30 min, greater than 50 % of time was spent on care coordination Case discussed with collaborating physician Leonie Alonso who reviewed the assessment and plan. Chart, medications, labs, vital signs reviewed. Dictation was accomplished with the use of [employer] voice recognition software, prone to medical misidentifications and grammatical errors. This is unintentional and the practitioner does try to identify and correct these, but some could still be present. Please do not hesitate to contact practitioner for clarification. All questions answered to patients satisfaction. Patient verbalized understanding of diagnosis and treatments explained. To call sooner prior to next visit it any questions/concerns arise. 06/10/2024 Migraine headache (ICD-10 - G43.909) #Morbid obesity. 260.4 pounds, BMI 43.9. Reviewed updated ceca scale in the office today. Discussed medical weight loss options in detail with patient. She was previously prescribed phentermine but never started it. She did have been updated normal EKG with Dr. Alonso recently. Discussed risk benefits adverse effects of phentermine in detail with patient. Advised to start and if she is having any side effects can stop as it is a short acting medication. Encouraged to stay well-hydrated and avoid additional caffeine while on phentermine. We did discuss lifestyle modifications in detail. Discussed importance of protein intake with a goal of 80 to 100 g a day. Advised to start regular exercise regimen with some resistance training. We also discussed the importance of water intake. Discussed importance of getting her updated labs which she will do prior to her follow-up in 1 month. Plan to review at that visit. We also discussed option of injectable weight loss medications if she does not tolerate the phentermine. Will discuss further at her follow-up visit. #PCOS. Previously on metformin however had side effects. Insulin level 30, HbA1C 5.8. Discussed GLP-1 #Headaches. Suspect migraines. Encouraged to re-start Topamax and keep headache log. Continue Qulipta. # Low VIt D> Start VIt D 1.25 mg po weekly x 6-8 weeks. Retest. The patient will continue exercise regimen with an emphasis on improving/increasing steps to at least 6,000-10,000 steps per day. Increasing cardio and strength training exercises as tolerated to improve weight loss and work on building muscle mass. Patient is committed to smarter eating with calorie counting and mindful eating. Limiting processed foods and carbohydrates and increasing leafy greens and lean proteins as well as fruits into their diet. Patient was counseled on the importance of eating local, organic food when possible. Patient has been counseled regarding effects of GLP/GIP-1 agonists and other FDA approved weight loss medications with regards to a multifactorial approach of weight loss as mentioned above and that the medication alone will not be sufficient to meet patients goals. We discussed holistic medication approach with emphasis on lifestyle modification. Discussed obesity as it increases risk of diabetes, cardiovascular disease, and/or organ damage. We spent a lot of time discussing the relationship between food, exercise, sleep, mental health, and obesity. We discussed the importance of having SECAs done every visit and having accountability done during these visits. That the scale is done to monitor not only weight loss but the body composition during medication management and healthy lifestyle changes. We discussed that if the patient is unable at times to financially afford this scale that we would rather waive the fee and have the scale done than have the patient not have the scale obtained. Will follow up with the patient in 4 weeks time to monitor weight loss. Total time was 30 min, greater than 50 % of time was spent on care coordination Case discussed with collaborating physician Leonie Alonso who reviewed the assessment and plan. Chart, medications, labs, vital signs reviewed. Dictation was accomplished with the use of [employer] voice recognition software, prone to medical misidentifications and grammatical errors. This is unintentional and the practitioner does try to identify and correct these, but some could still be present. Please do not hesitate to contact practitioner for clarification. All questions answered to patients satisfaction. Patient verbalized understanding of diagnosis and treatments explained. To call sooner prior to next visit it any questions/concerns arise. 06/07/2024 Adult general medical exam (ICD-10 - Z00.00) 03/04/2024 Migraine headache (ICD-10 - G43.909) #Morbid obesity. 260.4 pounds, BMI 43.9. Reviewed updated ceca scale in the office today. Discussed medical weight loss options in detail with patient. She was previously prescribed phentermine but never started it. She did have been updated normal EKG with Dr. Alonso recently. Discussed risk benefits adverse effects of phentermine in detail with patient. Advised to start and if she is having any side effects can stop as it is a short acting medication. Encouraged to stay well-hydrated and avoid additional caffeine while on phentermine. We did discuss lifestyle modifications in detail. Discussed importance of protein intake with a goal of 80 to 100 g a day. Advised to start regular exercise regimen with some resistance training. We also discussed the importance of water intake. Discussed importance of getting her updated labs which she will do prior to her follow-up in 1 month. Plan to review at that visit. We also discussed option of injectable weight loss medications if she does not tolerate the phentermine. Will discuss further at her follow-up visit. #PCOS. Previously on metformin however had side effects. CHeck insulin level/hba1C. #Insulin resistance. Will get updated labs and follow-up pending results. #Headaches. Suspect migraines. Encouraged to re-start Topamax and keep headache log. Continue Qulipta. The patient will continue exercise regimen with an emphasis on improving/increasing steps to at least 6,000-10,000 steps per day. Increasing cardio and strength training exercises as tolerated to improve weight loss and work on building muscle mass. Patient is committed to smarter eating with calorie counting and mindful eating. Limiting processed foods and carbohydrates and increasing leafy greens and lean proteins as well as fruits into their diet. Patient was counseled on the importance of eating local, organic food when possible. Patient has been counseled regarding effects of GLP/GIP-1 agonists and other FDA approved weight loss medications with regards to a multifactorial approach of weight loss as mentioned above and that the medication alone will not be sufficient to meet patients goals. We discussed holistic medication approach with emphasis on lifestyle modification. Discussed obesity as it increases risk of diabetes, cardiovascular disease, and/or organ damage. We spent a lot of time discussing the relationship between food, exercise, sleep, mental health, and obesity. We discussed the importance of having SECAs done every visit and having accountability done during these visits. That the scale is done to monitor not only weight loss but the body composition during medication management and healthy lifestyle changes. We discussed that if the patient is unable at times to financially afford this scale that we would rather waive the fee and have the scale done than have the patient not have the scale obtained. Will follow up with the patient in 4 weeks time to monitor weight loss. Total time was 30 min, greater than 50 % of time was spent on care coordination Case discussed with collaborating physician Leonie Alonso who reviewed the assessment and plan. Chart, medications, labs, vital signs reviewed. Dictation was accomplished with the use of [employer] voice recognition software, prone to medical misidentifications and grammatical errors. This is unintentional and the practitioner does try to identify and correct these, but some could still be present. Please do not hesitate to contact practitioner for clarification. All questions answered to patients satisfaction. Patient verbalized understanding of diagnosis and treatments explained. To call sooner prior to next visit it any questions/concerns arise. 06/10/2024 Vitamin D deficiency (ICD-10 - E55.9) #Morbid obesity. 260.4 pounds, BMI 43.9. Reviewed updated ceca scale in the office today. Discussed medical weight loss options in detail with patient. She was previously prescribed phentermine but never started it. She did have been updated normal EKG with Dr. Alonso recently. Discussed risk benefits adverse effects of phentermine in detail with patient. Advised to start and if she is having any side effects can stop as it is a short acting medication. Encouraged to stay well-hydrated and avoid additional caffeine while on phentermine. We did discuss lifestyle modifications in detail. Discussed importance of protein intake with a goal of 80 to 100 g a day. Advised to start regular exercise regimen with some resistance training. We also discussed the importance of water intake. Discussed importance of getting her updated labs which she will do prior to her follow-up in 1 month. Plan to review at that visit. We also discussed option of injectable weight loss medications if she does not tolerate the phentermine. Will discuss further at her follow-up visit. #PCOS. Previously on metformin however had side effects. Insulin level 30, HbA1C 5.8. Discussed GLP-1 #Headaches. Suspect migraines. Encouraged to re-start Topamax and keep headache log. Continue Qulipta. # Low VIt D> Start VIt D 1.25 mg po weekly x 6-8 weeks. Retest. The patient will continue exercise regimen with an emphasis on improving/increasing steps to at least 6,000-10,000 steps per day. Increasing cardio and strength training exercises as tolerated to improve weight loss and work on building muscle mass. Patient is committed to smarter eating with calorie counting and mindful eating. Limiting processed foods and carbohydrates and increasing leafy greens and lean proteins as well as fruits into their diet. Patient was counseled on the importance of eating local, organic food when possible. Patient has been counseled regarding effects of GLP/GIP-1 agonists and other FDA approved weight loss medications with regards to a multifactorial approach of weight loss as mentioned above and that the medication alone will not be sufficient to meet patients goals. We discussed holistic medication approach with emphasis on lifestyle modification. Discussed obesity as it increases risk of diabetes, cardiovascular disease, and/or organ damage. We spent a lot of time discussing the relationship between food, exercise, sleep, mental health, and obesity. We discussed the importance of having SECAs done every visit and having accountability done during these visits. That the scale is done to monitor not only weight loss but the body composition during medication management and healthy lifestyle changes. We discussed that if the patient is unable at times to financially afford this scale that we would rather waive the fee and have the scale done than have the patient not have the scale obtained. Will follow up with the patient in 4 weeks time to monitor weight loss. Total time was 30 min, greater than 50 % of time was spent on care coordination Case discussed with collaborating physician Leonie Alonso who reviewed the assessment and plan. Chart, medications, labs, vital signs reviewed. Dictation was accomplished with the use of [employer] voice recognition software, prone to medical misidentifications and grammatical errors. This is unintentional and the practitioner does try to identify and correct these, but some could still be present. Please do not hesitate to contact practitioner for clarification. All questions answered to patients satisfaction. Patient verbalized understanding of diagnosis and treatments explained. To call sooner prior to next visit it any questions/concerns arise. Plan Of Treatment Pending Test Test Name Order Date MRI : Brain with and without contrast MRI : Brain with Contrast 06/02/2022 TESTOSTERONE, FREE, JUVENILE OR FEMALE 1 DHEA-S (Dehydroepiandrosterone Sulfate) 01/28/2021 LIPID PANEL, STANDARD 01/14/2021 LIPID PANEL, STANDARD 06/07/2024 LIPID PANEL, STANDARD 11/15/2022 COMPREHENSIVE METABOLIC PANEL 06/07/2024 COMPREHENSIVE METABOLIC PANEL 01/14/2021 COMPREHENSIVE METABOLIC PANEL 11/15/2022 MAGNESIUM 06/07/2024 CBC (INCLUDES DIFF/PLT) 06/07/2024 CBC (INCLUDES DIFF/PLT) 11/15/2022 CBC (INCLUDES DIFF/PLT) 01/14/2021 URINALYSIS, COMPLETE 01/14/2021 URINALYSIS, COMPLETE 11/15/2022 URINALYSIS, COMPLETE 06/07/2024 HEMOGLOBIN A1c 06/07/2024 HEMOGLOBIN A1c 01/14/2021 HEMOGLOBIN A1c 11/15/2022 ESTRADIOL 03/04/2024 INSULIN 11/15/2022 INSULIN 01/14/2021 PROGESTERONE 03/04/2024 VITAMIN B12 06/07/2024 T4, FREE 01/14/2021 TSH 01/14/2021 TSH 08/09/2023 VITAMIN D,25-OH,TOTAL,IA 01/14/2021 VITAMIN D,25-OH,TOTAL,IA 11/15/2022 TESTOSTERONE, FREE (DIALYSIS) AND TOTAL, MS 03/04/2024 TESTOSTERONE, FREE (DIALYSIS) AND TOTAL, MS 06/11/2024 Next Appt Details Provider Name:KAYLIN SAMSON, 12/20/2024 08:45:00 AM, [address], [place], [address], Provider Name:CAMPOS GEORGINA, 12/23/2024 08:45:00 AM, [address], [place], [address], Insurance Providers Payer Name Payer Address Payer Phone Subscriber Number Group Number Insured Name Patient Relationship to Insured Coverage Start Date Coverage End Date [facility] [address] [place] [id number] Rima Natarajan Self - patient is the insured 1 Medical (General) History Medical History History ICD Code PCOS (polycystic ovarian syndrome) E28.2 Asthma J45.909 Weight gain Surgical History Surgery Date(Month/Year) C section
--- OUTSIDE RECORDS SUMMARY | 2024-12-19 19:03 | XMS_ITS | Clinical Summary ---
Author Organization [facility] Address [address] [place] [address] Care Team Providers Care Manager Of It Name Role Phone Joel Alonso MD Primary Care Provider [phone] Social History Tobacco Use Types Packs/Day Years Used Date Smoking Tobacco: Never Assessed Comments Unknown Sex and Gender Information Value Date Recorded Sex Assigned at Not on file Legal Sex Female 10:34 AM EST Gender Identity Not on file Sexual Orientation Not on file Plan of Treatment Upcoming Encounters Date Type Department Care Team (Late st Contact Info) Description 04/17/2025 12:30 PM EST Consult [facility] Medical [facility] Endocrinology [address] [place] [address] Akua aJy PA-C [address] [place] [id number] Keenan Ryan MD [address] [facility] [address] [place] [address] Health Maintenance Due Date Last Done Comments Hepatitis C Virus Screening 1989 HIV Screening 2002 DTaP/Tdap/Td Vaccines (1 - Tdap) 2008 Hepatitis B Vaccines (1 of 3 - 19+ 3-dose series) 2008 Pap Smear (Ages 21-65) 2010 HPV Vaccines (1 - 3-dose SCD M series) 2016 Influenza Vaccine 11/08/2024 COVID-19 Vaccine ( - 2023-2 5 season) 2024 Pneumococcal Vaccine: Pediat nikole (0-5 Years) and At-Risk Patients (6 to 49 Years) Aged Out No longer eligible b ased on patient's age to complete this topic Insurance [facility] Care Teams Manager Of It Relationship Specialty Start Date End Date Joel Alonso MD [address] [place] [id number] PCP - General Internal Medicine 06/14/24
--- OUTSIDE RECORDS SUMMARY | 2024-12-19 19:03 | XMS_ITS ---
Author Name [facility] Organization Unknown Problems Problem Status Onset Date Problem Type Date of Resoluti on Source PCOS (polycystic ovarian syndrome) active EncounterDiagnosisAct H HCCT Care Team Organization Name Specialty Phone Email Start Date End Da te [facility] Joel Alonso Primary Care 06/15/2024 [facility] Belinda Schumacher MD Primary Care 06/15/2022 11/27/2023 [facility] Termed, PROVIDER Primary Care 02/15/202211/08
--- NOTE | 2024-12-19 20:21 | PC.NURSE ---
RN assumed care for pt at 1900- second L of fluids was still infusing at that time. Rn hung up new bag at 2020.
--- NOTE | 2024-12-19 20:45 | PC.NURSE ---
delay in pts infusion of abx in the RAC. pump keeps bumping- pt told numerous times to extend arm for fluids to finish infusing.
--- NOTE | 2024-12-19 20:53 | P.HPHOSP_ITS ---
History of Present Illness Date of Service: 12/19/24 Attending physician on admission: Jose Guadalupe Felton Chief Complaint: AMS, fever Patient is a 34-year-old female with a past medical history significant for PCOS, anxiety, mild intermittent asthma, migraines and morbid obesity, who presented to the ED due to a fever of 104.7 with shortness of breath, body aches, headache, chills and chest discomfort for the past [address] days[address] herself to the emergency department but was lost and found altered. She describes her headache as a band around the frontal portion. This feels worse than her typical migraines. Upon arrival her temperature was 104.7 degrees, she was given a fluid bolus as well as IV Tylenol with some improvement as well as cooling blankets. She reports that she is feeling better, mentation is back to baseline, not currently having a headache, photophobia, change in vision or neck pain. Review of Systems 2 Constitutional: Constitutional: Reports body ache(s), Reports chills, Reports fatigue, Reports fever(s) and Reports headache(s) Eyes: Eyes: Denies change in vision and Denies photophobia ENT: Denies facial pain, Reports headache(s), Denies neck pain, Denies nose pain and Denies sore throat Cardiovascular: Cardiovascular: Reports chest pain, Denies syncope, Denies rapid heart rate, Reports leg edema and Reports dyspnea Respiratory: Respiratory: Denies chest congestion, Denies cough, Reports dyspnea and Denies wheezing Gastrointestinal: Gastrointestinal: Denies abdominal pain, Denies diarrhea, Denies nausea and Denies vomiting Genitourinary: Genitourinary: Denies dysuria and Denies urinary urgency Musculoskeletal: Musculoskeletal: Reports myalgias and Denies neck pain Integumentary/Breasts: Skin/Breast: Denies rash Neurologic: Reports confusion, Denies syncope and Reports headache(s) Psychiatric: Psychiatric: Reports confusion Endocrine: Endocrine: Reports fatigue Hematologic/Lymphatic: Hematologic/Lymphatic: Denies easy bleeding and Denies easy bruising Allergic/Immunologic: Allergic/Immunologic: Denies wheezing [facility] Medical History (Updated 12/19/24 @ 22:20 by Susan Smiley PA-C) Morbid obesity due to excess calories Migraines Mild intermittent asthma Anxiety PCOS (polycystic ovarian syndrome) Functional capacity: independent ambulation Social History Smoked in Last 30 Days: No Use of substances other than those prescribed or required for medical reasons: No Advance Directives: No Advance Directives Information Provided: Yes Narrative: No smoking, alcohol or drug use Meds Allergies Allergy/AdvReac Type Severity Reaction Status Date / Time No Known Allergies Allergy Verified 12/19/24 16:09 Physical Exam 2 Vital Signs and Narrative: Vital Signs: Last Vital Signs Temp 101.5 F H 12/19/24 18:55 Pulse 103 H 12/19/24 18:55 Resp 20 12/19/24 18:55 BP 110/71 12/19/24 18:55 Pulse Ox 97 12/19/24 18:55 O2 Del Method Room Air 12/19/24 18:55 BMI result Body Mass Index 47.5 General: AOx3, no acute distress. Seen with family members bedside Resp: CTA bilaterally, no wheezing or crackles CVS: S1, S2, RRR GI: +BS, NT, no distention Skin: Warm, dry Neuro: Cranial nerves II-XII grossly intact bilaterally. Motor grossly intact bilaterally Extremities: No pitting edema Psych: Appropriate affect Const: General: confusion Orientation/consciousness: confusion Eyes: Direct Ophthalmoscopy: No photophobia Neuro: General: confusion Results Labs 12/19/24 16:42 12/19/24 16:42 Labs: Laboratory Results - last 24 hr 12/19/24 12/19/24 16:42 17:48 MCV 81.5 MCH 27.8 MCHC 34.1 RDW 13.1 Plt Count 154 L MPV 12.2 Immature Gran % (Auto) 0.3 Neut % (Auto) 64.8 Lymph % (Auto) 18.8 L Schuyler % (Auto) 11.1 H Eos % (Auto) 4.7 H Baso % (Auto) 0.3 Lymph # (Auto) 0.6 L Schuyler # (Auto) 0.3 Eos # (Auto) 0.1 Baso # (Auto) 0.0 Abs Immat Gran (auto) 0.01 Absolute Neuts (auto) 1.9 L Absolute Nucleated RBC 0.000 Nucleated RBC % (auto) 0.0 Anion Gap 14 Estim Creat Clear Calc 123.9 Estimated GFR > 60 Random Glucose 92 Lactic Acid 1.1 Calcium 9.0 Total Bilirubin 0.4 AST 48 H ALT 52 H Alkaline Phosphatase 79 Total Protein 7.5 Albumin 4.2 Beta HCG, Quant < 2 Urine Color Yellow Urine Appearance Clear Urine pH 7.0 Ur Specific [place] 1.015 Urine Protein Negative Urine Glucose (UA) Negative Urine Ketones Negative Urine Blood Negative Urine Nitrite Negative Ur Leukocyte Esterase Negative Urine Test NEGATIVE Urine Opiates Screen Not Detected Ur Buprenorphine Scrn Not Detected Ur Oxycodone Screen Not Detected Urine Methadone Screen Not Detected Urine Fentanyl Screen Not Detected Ur Barbiturates Screen Not Detected Ur Phencyclidine Scrn Not Detected Ur Amphetamines Screen Not Detected U Benzodiazepines Scrn Not Detected Urine Cocaine Screen Not Detected U Marijuana (THC) Screen Not Detected Ethyl Alcohol < 10 COVID-19 (DEVANTE) Negative COVID-19 Clin Com See Note Influenza Type A (PATSY) Negative Influenza Type B (PATSY) Negative Influenza A & B Note See Note Assessment and Plan (1) SIRS (systemic inflammatory response syndrome): Status: Acute (2) Acute metabolic encephalopathy: Status: Acute (3) Fever: Status: Acute (4) Elevated LFTs: Status: Acute (5) Morbid obesity due to excess calories: Status: Acute Plan Patient is a 34-year-old female with a past medical history significant for PCOS, anxiety, mild intermittent asthma, migraines and morbid obesity, who presented to the ED due to a fever of 104.7 with shortness of breath, body aches, headache, chills and chest discomfort for the past 3 days. Acute metabolic encephalopathy with SIRS, no infection identified at this time -- encephalopathy resolved - WBC 3.0, febrile, tachycardic, lactic acid normal, blood cultures x2 pending, not severe sepsis - head CT negative - chest x-ray negative - CTA chest negative - UA negative for infection - UTox negative - trop negative, EKG with sinus tach - COVID/flu/RSV negative - TSH normal - patient declined LP due to concerns with previous epidural complications and improvement of symptoms. mentating ok at this time, family members bedside agree pt is at baseline capacity. - started on ceftriaxone and vancomycin in ED, continue - given 30 cc/kg fluid bolus - MRI brain - ID consult - B12, RPR, Lyme, tick panel, A1C pending - monitor CBC and CMP Elevated LFTs - AST 48, ALT 52, alk-phos normal, bilirubin normal - patient not having abdominal pain - LFTs likely related to fatty liver disease - check hepatitis panel - repeat LFTs in a.m. Metabolic acidosis - Bicarb 20, chloride 109 - patient received 30 cc/kg fluid bolus - monitor BMP Mild intermittent asthma, no acute exacerbation - continue home meds Morbid obesity secondary to PCOS and excess calories - BMI 47.5 - weight loss encouraged - check A1c Med rec pending Full code VTE prophylaxis: Heparin Patient is a 34-year-old female with acute metabolic encephalopathy, SIRS criteria without infection identified at this time, requiring admission for at least 2 midnight stay for IV antibiotics, further evaluation and Infectious Disease consultation. Quality Stroke Does the patient have a stroke diagnosis?: No VTE Prior VTE?: No VTE Risk Level:: Medical - moderate - high VTE Device Contraindication: Treatment Not Indicated VTE Drug Contraindication: N/A - Med Ordered
--- NOTE | 2024-12-19 21:05 | PHA.MEDREC ---
Pharmacy Consult ? Medication Reconciliation Pharmacy has completed the medication reconciliation. spoke to patient at bedside, she states she takes no medications.
--- NOTE | 2024-12-19 21:25 | PHA.PROG ---
Admission Date/Time: December 19, 2024 20:46 Indication: sepsis Weight in k.5 kg Adjusted body weight in Kg: [place] body weight in Kg: Obesity Dosing Indication % IBW: Serum Creatinine - Last 168 Hours 12/19/24 16:42 Creatinine 0.86 Estimated CrCl and GFR - Last 168 Hours 12/19/24 16:42 Estim Creat Clear Calc 123.9 Estimated GFR > 60 Vancomycin Loading Dose: 2000 mg Current Vancomycin Dosing Regimen: 1250 mg Q12H Vancomycin Monitoring using AUC goal of 400 - 600 range with trough as surrogate marker: Predicted AUC 566 and trough 16.5 Date and Time for next Vancomycin Level to be drawn: 12/20 @1600 after second dose Pharmacist Comments on Vancomycin Plan: Vancomycin dosing will take advantage of [employer] as a clinical decision support tool that uses Bayesian modeling to calculate individual patient's pharmacokinetic parameters and forecast the patient's drug concentration time course with the target goal AUC 24 range of 400 - 600 mg/L/hr.
[2024-12-19 22:25] LABS: Folate 6.1 ng/mL (> or = 4.0); Vitamin B12 291 pg/mL (200-900)
--- NOTE | 2024-12-19 22:42 | PC.NURSE ---
pts BP trending low after sepsis fluids finished.Provider made aware.
[2024-12-19] MEDS: Lactated Ringers 1,000 ML 80 ML IVCONT (22:59)
[2024-12-20] VITALS (10 sets, daily range): BP systolic 103–132; BP diastolic 55–81; PULSE 84–108; RESP 16–19; TEMP 36.9–38.1; O2SAT 93–100
--- NOTE | 2024-12-20 00:01 | PC.NURSE ---
Delay in infusion of vanco & LR- R ultrasound guided line stopped working- only had one working line. Provider was able to put another US guided line in the LAC
[2024-12-20 05:47] LABS: Hematocrit 31.2 % (37.0-47.0); Hemoglobin 10.7 g/dl (12.0-16.0); Imm Gran Abs Auto 0.00 X10*3/uL (0.00-0.03); Imm Gran Pct Auto 0.0 % (0.0-0.4); Lymphocytes Absolute Auto 0.6 X10*3/uL (1.2-4.9); MANUAL DIFF FLAG SCAN; Mean Corpuscular HGB Conc 34.3 g/dl (31.0-35.0); Mean Corpuscular Hemoglobin 27.8 pg (27.0-33.0); Mean Corpuscular Volume 81.0 fL (80.0-98.0); NRBC Abs Auto 0.000 X10*3/uL (0.0-0.012); NRBC Pct Auto 0.0 /100WBC (0.0-0.2); Platelet Count 130 X10*3/uL (160-400); Red Blood Count 3.85 X10*6/uL (4.20-5.50); SCAN SMEAR FLAG 1
[2024-12-20 05:48] LABS: White Blood Count 2.2 X10*3/uL (4.8-10.8)
[2024-12-20 06:11] LABS: Alanine Aminotransferase 37 U/L (0-31); Albumin Level 3.2 g/dL (3.5-5.0); Alkaline Phosphatase 57 U/L (39-117); Anion Gap 10 (12-20); Aspartate Amino Transferase 37 U/L (5-31); Blood Urea Nitrogen 7 mg/dL (9-16); Calcium 8.0 mg/dL (8.4-10.2); Carbon Dioxide 23 mmol/L (22-29); Chloride 110 mmol/L (96-108); Creatinine Clr Calc Pharmacy 150.1; Estimated Glomerular Filt Rate > 60; Potassium 3.4 mmol/L (3.3-5.1); Sodium 140 mmol/L (135-145); Total Protein 5.9 g/dL (6.5-8.0)
[2024-12-20] MEDS: 0.9 % Sodium Chloride Flush 3 ML SYRINGE IVFLUSH (06:28)
[2024-12-20 07:30] LABS: Hemoglobin A1C 135.7903 umol/L; Total Hemoglobin (HGBA1C) 3280.0649 umol/L
--- NOTE | 2024-12-20 07:30 | PC.NURSE ---
lr ordered at 2300 not given by previous shift
[2024-12-20 08:39] LABS: Chlamydia pneumoniae PCR Not Detected (Not Detect.); Coronavirus 229E PCR Not Detected (Not Detect.); Coronavirus HKU1 PCR Not Detected (Not Detect.); Coronavirus NL63 PCR Not Detected (Not Detect.); Coronavirus OC43 PCR Not Detected (Not Detect.); RSV PCR Not Detected (Not Detect.); Rhino/Enterovirus PCR Not Detected (Not Detect.)
[2024-12-20 08:51] LABS: Influenza A H1 PCR Not Detected (Not Detect.); Influenza A H1-2009 PCR Not Detected (Not Detect.); Influenza A H3 PCR Not Detected (Not Detect.); SARS-CoV-2 PCR Not Detected (Not Detect.)
[2024-12-20 08:53] LABS: HBS Num1 495.43 mIU/mL (0-7.99); HBc Num1 0.12 S/CO (0.00-0.79); HBsAGNum1 2.83 S/CO (0.00-0.99); Hepatitis A Antibody IgM 0.25 Index (0-0.79); ~HepC Num1 0.11 S/CO (0.00-0.79); ~Hepatitis A Antibody IgM Nonreactive (Nonreactive); ~Hepatitis B Surface Antibody REACTIVE (Nonreactive); ~Hepatitis C Antibody Nonreactive (Nonreactive)
[2024-12-20 09:29] LABS: Syphilis Screen Nonreactive (Nonreactive)
[2024-12-20] MEDS: Lactated Ringers 1,000 ML 80 ML IVCONT (10:13)
[2024-12-20 10:51] LABS: HBsAGNum2 Nonreactive; HBsAGNum3 Nonreactive; Hepatitis B Surface Antigen NEGATIVE (Negative)
--- NOTE | 2024-12-20 11:53 | P.PNIM_ITS ---
Subjective Subjective Date of Service: 12/20/24 Interval History: Complains of intense headache behind left eye Has daily migraines but this feels different No vision changes No N/V/D or abd pain Denies SOB or cough; no sore throat AOx3 Review of Systems Review of Systems: Yes all other systems are reviewed and are negative Physical Exam 2 Exam: Exam: General: AOx3, no acute distress Resp: CTA bilaterally CVS: S1, S2, RRR GI: +BS, NT, no distention Skin: Warm, dry Neuro: Cranial nerves II-XII grossly intact bilaterally. Motor grossly intact bilaterally Extremities: No edema Psych: Appropriate affect Vital Signs: Vital Signs: Last Vital Signs Temp 98.9 F 12/20/24 10:09 Pulse 94 12/20/24 10:09 Resp 19 12/20/24 10:09 BP 118/80 12/20/24 10:09 Pulse Ox 97 12/20/24 10:09 O2 Del Method Room Air 12/20/24 10:09 BMI result Body Mass Index 47.5 Objective Data Active Medications Acetaminophen (Acetaminophen 325 Mg Tablet) 650 mg PO Q6H PRN PRN Reason: Pain, Mild 1-3,fever,headache Last Admin: 12/20/24 10:57 Dose: 650 mg Documented By: JEFF Calcium Carbonate (Calcium Carbonate 750 Mg Tab.Chew) 750 mg PO Q4H PRN PRN Reason: Heartburn Ceftriaxone Sodium (Ceftriaxone Sodium 2 Gm Vial) 2 gm IVPUSH Q24H [facility] Heparin Sodium (Porcine) (Heparin Sodium,Porcine 5,000 Unit/Ml Vial) 5,000 unit SUBCUT Q8H [facility] Last Admin: 12/20/24 06:03 Dose: 5,000 unit Documented By: LISANDRA Lactated Ringer's (Lr) 1,000 mls @ 80 mls/hr IVCONT .[id number] [facility] Last Admin: 12/20/24 10:13 Dose: 80 mls/hr Documented By: KARLO Vancomycin HCl 1,250 mg/ (Sodium Chloride) 250 mls @ 166.667 mls/hr IV Q12H [facility] Last Infusion: 12/20/24 10:14 Dose: Infused Documented By: KARLO Magnesium Hydroxide (Milk Of Magnesia 30 Ml Oral.Susp) 30 ml PO DAILY PRN PRN Reason: Constipation Melatonin (Melatonin 3 Mg Tablet) 6 mg PO BEDTIME PRN PRN Reason: Insomnia Ondansetron HCl (Ondansetron Hcl 4 Mg/2 Ml Vial) 4 mg IVPUSH Q8H PRN PRN Reason: Nausea and Vomiting Oxycodone HCl (Oxycodone Hcl Immed Release 5 Mg Tablet) 5 mg PO Q6H PRN PRN Reason: Pain, Severe (Pain Scale 7-10) Pharmacy Consult (Consult Rx Vancomycin Dosing) 1 each MISCELLANE DAILY PRN PRN Reason: Consult order Sodium Chloride (0.9 % Sodium Chloride Flush 3 Ml Syringe) 3 ml IVFLUSH QSHIFT [facility] Last Admin: 12/20/24 07:40 Dose: Not Given Documented By: KARLO Non-Admin Reason: IV Running Tramadol HCl (Tramadol Hcl 50 Mg Tablet) 50 mg PO Q6H PRN PRN Reason: Pain, Moderate(Pain Scale 4-6) Labs 12/20/24 05:32 12/20/24 05:32 Labs: Laboratory Results - last 24 hr 12/19/24 12/19/24 12/19/24 16:42 17:48 21:30 MCV 81.5 MCH 27.8 MCHC 34.1 RDW 13.1 Plt Count 154 L MPV 12.2 Immature Gran % (Auto) 0.3 Neut % (Auto) 64.8 Lymph % (Auto) 18.8 L [place] % (Auto) 11.1 H Eos % (Auto) 4.7 H Baso % (Auto) 0.3 Lymph # (Auto) 0.6 L [place] # (Auto) 0.3 Eos # (Auto) 0.1 Baso # (Auto) 0.0 Abs Immat Gran (auto) 0.01 Absolute Neuts (auto) 1.9 L Absolute Nucleated RBC 0.000 Nucleated RBC % (auto) 0.0 Smear Tech's Comments Anion Gap 14 Estim Creat Clear Calc 123.9 Estimated GFR > 60 Random Glucose 92 Estimat Average Glucose 123 Hemoglobin A1c % 5.9 Lactic Acid 1.1 Calcium 9.0 Total Bilirubin 0.4 AST 48 H ALT 52 H Alkaline Phosphatase 79 Total Protein 7.5 Albumin 4.2 Vitamin B12 291 Folate 6.1 TSH 0.36 Beta HCG, Quant < 2 Urine Color Yellow Urine Appearance Clear Urine pH 7.0 Ur Specific [place] 1.015 Urine Protein Negative Urine Glucose (UA) Negative Urine Ketones Negative Urine Blood Negative Urine Nitrite Negative Ur Leukocyte Esterase Negative Urine Test NEGATIVE Urine Opiates Screen Not Detected Ur Buprenorphine Scrn Not Detected Ur Oxycodone Screen Not Detected Urine Methadone Screen Not Detected Urine Fentanyl Screen Not Detected Ur Barbiturates Screen Not Detected Ur Phencyclidine Scrn Not Detected Ur Amphetamines Screen Not Detected U Benzodiazepines Scrn Not Detected Urine Cocaine Screen Not Detected U Marijuana (THC) Screen Not Detected Ethyl Alcohol < 10 Respiratory Panel [place] T.pallidum Ab (EIA) Nonreactive Adenovirus (Rapid PCR) B.pert (TEM-PCR) B.parapertussis DNA PCR C. pneumoniae DNA (PCR) Coronavirus OC43 (PCR) Coronavirus HKU1 (PCR) Coronavirus 229E (PCR) COVID-19 (DEVANTE) Negative COVID-19 Clin Com See Note Coronavirus NL63 (PCR) Hepatitis A IgM Ab Nonreactive Hep Bs Antigen Not Reportable Hep Bs Antigen (2) NEGATIVE Hep Bs Antibody REACTIVE Hep B Core Total Ab Nonreactive Hepatitis C Ab (EIA) Nonreactive Human Metapneumovir PCR Influenza Type A (PATSY) Negative Influenza A (RT-PCR) Influenza A (H1) PCR Influ A (H1/09) PCR Influenza A (H3) PCR Influenza Type B (PATSY) Negative Influenza B (RT-PCR) Influenza A & B Note See Note M. pneumoniae (PCR) Parainfluenza 1 (PCR) Parainfluenza 2 (PCR) Parainfluenza 3 (PCR) Parainfluenza 4 (PCR) RSV (PCR) Entero/Rhino (PCR) SARS-CoV-2 RNA (RT-PCR) 12/20/24 12/20/24 03:50 05:32 MCV 81.0 MCH 27.8 MCHC 34.3 RDW 13.2 Plt Count 130 L MPV 12.1 Immature Gran % (Auto) 0.0 Neut % (Auto) 42.0 L Lymph % (Auto) 26.7 [place] % (Auto) 24.4 H Eos % (Auto) 6.9 H Baso % (Auto) 0.0 Lymph # (Auto) 0.6 L [place] # (Auto) 0.5 Eos # (Auto) 0.2 Baso # (Auto) 0.0 Abs Immat Gran (auto) 0.00 Absolute Neuts (auto) 0.9 L Absolute Nucleated RBC 0.000 Nucleated RBC % (auto) 0.0 Smear Tech's Comments VERIFIED Anion Gap 10 L Estim Creat Clear Calc 150.1 Estimated GFR > 60 Random Glucose 112 Estimat Average Glucose Hemoglobin A1c % Lactic Acid Calcium 8.0 L D Total Bilirubin 0.3 AST 37 H ALT 37 H Alkaline Phosphatase 57 Total Protein 5.9 L Albumin 3.2 L Vitamin B12 Folate TSH Beta HCG, Quant Urine Color Urine Appearance Urine pH Ur Specific [place] Urine Protein Urine Glucose (UA) Urine Ketones Urine Blood Urine Nitrite Ur Leukocyte Esterase Urine Test Urine Opiates Screen Ur Buprenorphine Scrn Ur Oxycodone Screen Urine Methadone Screen Urine Fentanyl Screen Ur Barbiturates Screen Ur Phencyclidine Scrn Ur Amphetamines Screen U Benzodiazepines Scrn Urine Cocaine Screen U Marijuana (THC) Screen Ethyl Alcohol Respiratory Panel Fernando See Note T.pallidum Ab (EIA) Adenovirus (Rapid PCR) Not Detected B.pert (TEM-PCR) Not Detected B.parapertussis DNA PCR Not Detected C. pneumoniae DNA (PCR) Not Detected Coronavirus OC43 (PCR) Not Detected Coronavirus HKU1 (PCR) Not Detected Coronavirus 229E (PCR) Not Detected COVID-19 (DEVANTE) COVID-19 Clin Com Coronavirus NL63 (PCR) Not Detected Hepatitis A IgM Ab Hep Bs Antigen Hep Bs Antigen (2) Hep Bs Antibody Hep B Core Total Ab Hepatitis C Ab (EIA) Human Metapneumovir PCR Not Detected Influenza Type A (PATSY) Influenza A (RT-PCR) Not Detected Influenza A (H1) PCR Not Detected Influ A (H1/09) PCR Not Detected Influenza A (H3) PCR Not Detected Influenza Type B (PATSY) Influenza B (RT-PCR) Not Detected Influenza A & B Note M. pneumoniae (PCR) Not Detected Parainfluenza 1 (PCR) Not Detected Parainfluenza 2 (PCR) Not Detected Parainfluenza 3 (PCR) Not Detected Parainfluenza 4 (PCR) Not Detected RSV (PCR) Not Detected Entero/Rhino (PCR) Not Detected SARS-CoV-2 RNA (RT-PCR) Not Detected Assessment and Plan (1) Fever: Status: Acute (2) SIRS (systemic inflammatory response syndrome): Status: Acute Plan Patient is a 34-year-old female with a past medical history significant for PCOS, anxiety, mild intermittent asthma, migraines and morbid obesity, who presented to the ED due to a fever of 104.7 with shortness of breath, body aches, headache, chills and chest discomfort for the past 3 days. Acute metabolic encephalopathy with SIRS, no infection identified at this time -- encephalopathy resolved - met SIRS criteria with leukopenia, fever, tachycardia, and tachypnea; lactic acid WNL - no infectious source identified: UA, head CT, CTA of chest, CXR, MRI of brain, respiratory panel, RPR, and UTox all negative - TSH normal - patient declined LP due to concerns with previous epidural complications and improvement of symptoms. mentating ok at this time, family members bedside agree pt is at baseline capacity. - pt given sepsis bolus fluids and started on ceftriaxone and vancomycin in ED, will stop per ID recommendations as pt with likely viral infection - ID consulted - Lyme and tick panel pending - monitor CBC and CMP Elevated LFTs - initially AST 48, ALT 52, alk-phos normal, bilirubin normal; have trended down since - patient not having abdominal pain - LFTs likely related to fatty liver disease - hepatitis panel negative - repeat LFTs in a.m. Acute Metabolic acidosis, resolved - Bicarb 20 -->23 - patient received 30 cc/kg fluid bolus - monitor BMP Mild intermittent asthma, no acute exacerbation - not on home meds Obesity class III secondary to PCOS and excess calories - BMI 47.5 - weight loss encouraged - A1c WNL Full code VTE prophylaxis: Heparin Requires continued hospitalization for monitoring of acute metabolic encephalopathy meeting SIRS criteria likely secondary to viral infection. Quality Stroke Does the patient have a stroke diagnosis?: No VTE Prior VTE?: No VTE Risk Level:: Medical - moderate - high VTE Device Contraindication: Treatment Not Indicated VTE Drug Contraindication: N/A - Med Ordered
--- NOTE | 2024-12-20 14:18 | MHC.CM.PN ---
pt lives w/family is indepedent and working has own ride home dc plan home no services
--- NOTE | 2024-12-20 15:17 | P.CNID_ITS ---
History of Present Illness Data of Consult Service Date: 12/20/24 Requesting physician: Gabby Kendrick Primary Care Provider: Unknown Physician HPI Reason for consult: fever of unknown origin,headache She presents with fever to 102 as well as left sided headache,7/10. Her temperature was 105 at first and tachycardia. She has received Vancomycin and Ceftriaxone. MRI brain unremarkable and no meningismus. She has declining WBC and platelets. Review of Systems 2 Review of Systems: Yes all other systems are reviewed and are negative [facility] Past Medical History Medical History Morbid obesity due to excess calories Migraines Mild intermittent asthma Anxiety PCOS (polycystic ovarian syndrome) Family History Family history: reviewed and not pertinent Social History Social History Household Members: Children Housing: House Do you presently have visiting nurse or other home services: No Patient Tobacco Use Status: Never used Tobacco service: No Meds Allergies Allergy/AdvReac Type Severity Reaction Status Date / Time No Known Allergies Allergy Verified 12/19/24 16:09 Active Medications: Current Medications Acetaminophen (Acetaminophen 325 Mg Tablet) 650 mg PO Q6H PRN PRN Reason: Pain, Mild 1-3,fever,headache Last Admin: 12/20/24 10:57 Dose: 650 mg Acetaminophen/Butalbital/Caffeine (Butalb/Acetamin/Caff 50/325/40 Tablet) 1 tab PO Q4H PRN PRN Reason: Migraine Headache Calcium Carbonate (Calcium Carbonate 750 Mg Tab.Chew) 750 mg PO Q4H PRN PRN Reason: Heartburn Heparin Sodium (Porcine) (Heparin Sodium,Porcine 5,000 Unit/Ml Vial) 5,000 unit SUBCUT Q8H [facility] Last Admin: 12/20/24 13:40 Dose: 5,000 unit Magnesium Hydroxide (Milk Of Magnesia 30 Ml Oral.Susp) 30 ml PO DAILY PRN PRN Reason: Constipation Melatonin (Melatonin 3 Mg Tablet) 6 mg PO BEDTIME PRN PRN Reason: Insomnia Ondansetron HCl (Ondansetron Hcl 4 Mg/2 Ml Vial) 4 mg IVPUSH Q8H PRN PRN Reason: Nausea and Vomiting Oxycodone HCl (Oxycodone Hcl Immed Release 5 Mg Tablet) 5 mg PO Q6H PRN PRN Reason: Pain, Severe (Pain Scale 7-10) Sodium Chloride (0.9 % Sodium Chloride Flush 3 Ml Syringe) 3 ml IVFLUSH QSHIFT [facility] Last Admin: 12/20/24 07:40 Dose: Not Given Tramadol HCl (Tramadol Hcl 50 Mg Tablet) 50 mg PO Q6H PRN PRN Reason: Pain, Moderate(Pain Scale 4-6) Physical Exam 2 Vital Signs: Vital Signs: Last Vital Signs Temp 99.1 F 12/20/24 15:10 Pulse 105 H 12/20/24 15:10 Resp 16 12/20/24 15:10 BP 123/70 12/20/24 15:10 Pulse Ox 96 12/20/24 15:10 O2 Del Method Room Air 12/20/24 15:10 BMI result Body Mass Index 47.5 Const: General: cooperative HEENT: Head: Yes normal to inspection Face and sinus: Yes normal facial exam Mouth: Normal oral and palatal mucosa present Teeth and gingiva: d entition normal Eyes: General: appearance normal, both eyes and all related structures P upils: Equal, round and reactive pupils present Resp: Effort & Inspection: normal respiratory effort Cardio: Rate: regular rate Rhythm: regular rhythm GI: Palpation (GI): Soft to palpation and nontender : General: Yes no CVA tenderness Back/Spine/Pelvis: Back: no CVA tenderness Skin: General skin exam: no rashes or lesions noted Neuro: General: moves all extremities Cranial nerves: Yes Equal, round and reactive pupils present Extrem: General: Yes normal to inspection Psych: Appearance: grossly normal Results Labs 12/20/24 05:32 12/20/24 05:32 Labs: Short CBC 12/19/24 12/20/24 Range/Units 16:42 05:32 WBC 3.0 L 2.2 L (4.8-10.8) X10*3/uL Hgb 12.6 10.7 L (12.0-16.0) g/dl Hct 37.0 31.2 L (37.0-47.0) % Plt Count 154 L 130 L (160-400) X10*3/uL BMP 12/19/24 12/20/24 16:42 05:32 Sodium 139 140 Potassium 4.0 3.4 Chloride 109 H 110 H Carbon Dioxide 20 L 23 BUN 9 7 L Creatinine 0.86 0.71 Calcium 9.0 8.0 L D Liver Function 12/19/24 12/20/24 Range/Units 16:42 05:32 Total Bilirubin 0.4 0.3 (0.0-1.0) mg/dL AST 48 H 37 H (5-31) U/L ALT 52 H 37 H (0-31) U/L Alkaline Phosphatase 79 57 (39-117) U/L Albumin 4.2 3.2 L (3.5-5.0) g/dL Urine 12/19/24 Range/Units 17:48 Urine Color Yellow Urine Appearance Clear Urine pH 7.0 (5.0-9.0) Ur Specific [place] 1.015 (1.005-1.025) Urine Protein Negative (Neg-Trace) mg/dL Urine Glucose (UA) Negative (Negative) mg/dL Assessment and Plan (1) Altered mental status: Status: Acute (2) Fever: Status: Acute Plan There is possible tick borne parasitic or viral infection with cytopenias. Less likely HIV. 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 Tick panel HIV test. Hold off LP unless condition changes.
[2024-12-20] MEDS: Lactated Ringers 1,000 ML 100 ML IVCONT (22:56)
[2024-12-21 03:48] VITALS: BP 116/64; PULSE 85; RESP 19; TEMP 36.7; O2SAT 96
[2024-12-21 06:52] LABS: Hematocrit 32.4 % (37.0-47.0); Hemoglobin 10.7 g/dl (12.0-16.0); Imm Gran Abs Auto 0.01 X10*3/uL (0.00-0.03); Imm Gran Pct Auto 0.4 % (0.0-0.4); Lymphocytes Absolute Auto 1.1 X10*3/uL (1.2-4.9); MANUAL DIFF FLAG SCAN; Mean Corpuscular HGB Conc 33.0 g/dl (31.0-35.0); Mean Corpuscular Hemoglobin 27.5 pg (27.0-33.0); Mean Corpuscular Volume 83.3 fL (80.0-98.0); NRBC Abs Auto 0.000 X10*3/uL (0.0-0.012); NRBC Pct Auto 0.0 /100WBC (0.0-0.2); Platelet Count 115 X10*3/uL (160-400); Red Blood Count 3.89 X10*6/uL (4.20-5.50); SCAN SMEAR FLAG 1
[2024-12-21 06:53] LABS: White Blood Count 2.5 X10*3/uL (4.8-10.8)
[2024-12-21 07:10] LABS: Alanine Aminotransferase 41 U/L (0-31); Albumin Level 3.4 g/dL (3.5-5.0); Alkaline Phosphatase 67 U/L (39-117); Anion Gap 12 (12-20); Aspartate Amino Transferase 42 U/L (5-31); Blood Urea Nitrogen 9 mg/dL (9-16); Calcium 8.1 mg/dL (8.4-10.2); Carbon Dioxide 24 mmol/L (22-29); Chloride 108 mmol/L (96-108); Creatinine Clr Calc Pharmacy 148.0; Estimated Glomerular Filt Rate > 60; Potassium 3.5 mmol/L (3.3-5.1); Sodium 140 mmol/L (135-145); Total Protein 6.2 g/dL (6.5-8.0)
[2024-12-21 07:44] VITALS: BP 103/60; PULSE 100; RESP 16; TEMP 37.2; O2SAT 94
[2024-12-21] MEDS: Lactated Ringers 1,000 ML 100 ML IVCONT (08:04)
[2024-12-21 09:20] LABS: HIV Num 1 0.24 S/CO (0.00-0.99)
--- NOTE | 2024-12-21 09:23 | P.PNIM_ITS ---
Subjective Subjective Date of Service: 12/21/24 Physical Exam 2 Vital Signs: Vital Signs: Last Vital Signs Temp 99.0 F 12/21/24 07:44 Pulse 100 12/21/24 07:44 Resp 16 12/21/24 07:44 BP 103/60 12/21/24 07:44 Pulse Ox 94 12/21/24 07:44 O2 Del Method Room Air 12/21/24 07:44 BMI result Body Mass Index 47.5 Objective Data Active Medications Acetaminophen (Acetaminophen 325 Mg Tablet) 650 mg PO Q6H PRN PRN Reason: Pain, Mild 1-3,fever,headache Last Admin: 12/20/24 21:19 Dose: 650 mg Documented By: JANELLE Acetaminophen/Butalbital/Caffeine (Butalb/Acetamin/Caff 50/325/40 Tablet) 1 tab PO Q4H PRN PRN Reason: Migraine Headache Calcium Carbonate (Calcium Carbonate 750 Mg Tab.Chew) 750 mg PO Q4H PRN PRN Reason: Heartburn Doxycycline Monohydrate (Doxycycline Monohydrate 100 Mg Capsule) 100 mg PO Q12H [facility] Stop: 12/31/24 08:59 Magnesium Hydroxide (Milk Of Magnesia 30 Ml Oral.Susp) 30 ml PO DAILY PRN PRN Reason: Constipation Melatonin (Melatonin 3 Mg Tablet) 6 mg PO BEDTIME PRN PRN Reason: Insomnia Ondansetron HCl (Ondansetron Hcl 4 Mg/2 Ml Vial) 4 mg IVPUSH Q8H PRN PRN Reason: Nausea and Vomiting Oxycodone HCl (Oxycodone Hcl Immed Release 5 Mg Tablet) 5 mg PO Q6H PRN PRN Reason: Pain, Severe (Pain Scale 7-10) Sodium Chloride (0.9 % Sodium Chloride Flush 3 Ml Syringe) 3 ml IVFLUSH QSHIFT [facility] Last Admin: 12/21/24 09:13 Dose: Not Given Documented By: YAYA Non-Admin Reason: IV Running Tramadol HCl (Tramadol Hcl 50 Mg Tablet) 50 mg PO Q6H PRN PRN Reason: Pain, Moderate(Pain Scale 4-6) Labs 12/21/24 05:56 12/21/24 05:56 Labs: Laboratory Results - last 24 hr 12/19/24 12/20/24 12/21/24 21:30 15:52 05:56 MCV 83.3 MCH 27.5 MCHC 33.0 RDW 13.2 Plt Count 115 L MPV 12.7 H Immature Gran % (Auto) 0.4 Neut % (Auto) 34.3 L Lymph % (Auto) 42.5 H [place] % (Auto) 13.0 H Eos % (Auto) 9.4 H Baso % (Auto) 0.4 Lymph # (Auto) 1.1 L [place] # (Auto) 0.3 Eos # (Auto) 0.2 Baso # (Auto) 0.0 Abs Immat Gran (auto) 0.01 Absolute Neuts (auto) 0.9 L Absolute Nucleated RBC 0.000 Nucleated RBC % (auto) 0.0 Smear Tech's Comments VERIFIED Anion Gap 12 Estim Creat Clear Calc 148.0 Estimated GFR > 60 Random Glucose 103 Calcium 8.1 L Total Bilirubin 0.3 AST 42 H ALT 41 H Alkaline Phosphatase 67 Total Protein 6.2 L Albumin 3.4 L Random Vancomycin 6.7 L T.pallidum Ab (EIA) Nonreactive Hep Bs Antigen (2) NEGATIVE Microbiology Microbiology Results: Microbiology 12/19/24 16:42 Blood Culture - Preliminary Blood - Venous No growth after 24 hours. 12/19/24 16:42 Blood Culture - Preliminary Blood - Venous No growth after 24 hours. Assessment and Plan (1) Fever of unknown origin (FUO): Status: Acute (2) SIRS (systemic inflammatory response syndrome): Status: Acute Quality Stroke Does the patient have a stroke diagnosis?: No VTE Prior VTE?: No VTE Risk Level:: Medical - moderate - high VTE Device Contraindication: Treatment Not Indicated VTE Drug Contraindication: Treatment Not Indicated
[2024-12-21 11:22] VITALS: BP 111/57; PULSE 95; RESP 16; TEMP 37; O2SAT 95
[2024-12-21 15:53] VITALS: BP 107/74; PULSE 95; RESP 16; TEMP 36.9; O2SAT 95
--- NOTE | 2024-12-21 22:20 | P.DS_ITS ---
DS: Providers Provider Date of Service: 12/21/24 Date of admission: 12/19/24 20:46 Date of discharge: 12/21/24 Primary care physician: Emilie Physician Consults: 12/19/24 20:48 Consult to Infectious Diseases Routine Consulting Provider: [facility] Reason for consultation: AMS, fever, tachy, FUO Has provider been notified: No DS: Diagnosis Discharge Diagnosis (1) Fever of unknown origin (FUO): Status: Acute (2) SIRS (systemic inflammatory response syndrome): Status: Acute DS: Summary Hospital Course Hospital Course: From admission HPI: Date of Service: 12/19/24 Attending physician on admission: Jose Guadalupe Felton Chief Complaint: AMS, fever Patient is a 34-year-old female with a past medical history significant for PCOS, anxiety, mild intermittent asthma, migraines and morbid obesity, who presented to the ED due to a fever of 104.7 with shortness of breath, body aches, headache, chills and chest discomfort for the past [address] herself to the emergency department but was lost and found altered. She describes her headache as a band around the frontal portion. This feels worse than her typical migraines. Upon arrival her temperature was 104.7 degrees, she was given a fluid bolus as well as IV Tylenol with some improvement as well as cooling blankets. She reports that she is feeling better, mentation is back to baseline, not currently having a headache, photophobia, change in vision or neck pain. Hospital course Pt was admitted to the hospital for acute metabolic encephalopathy in the setting of fever of unknown origin meeting SIRS criteria. Pt was given sepsis bolus fluids and initially started on vancomycin and ceftriaxone which was stopped after negative work up and consultation with infectious disease. No infectious source identified: UA, head CT, CTA of chest, CXR, MRI of brain, respiratory panel, RPR, and UTox all negative; tick borne illness panel still p ending. Patient declined LP due to concerns with previous epidural complications and improvement of symptoms. Mentation was at baseline by admission to the hospital. Pt did experience low-grade fever last night, but has been afebrile since and with only one dose of Tylenol. Currently feeling nearly back to baseline and wishes to do home. 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 Additional details concerning hosptial stay as listed below: Acute metabolic encephalopathy with SIRS, no infection identified at this time -- encephalopathy resolved - met SIRS criteria with leukopenia, fever, tachycardia, and tachypnea; lactic acid WNL - no infectious source identified: UA, head CT, CTA of chest, CXR, MRI of brain, respiratory panel, RPR, and UTox all negative - TSH normal - patient declined LP due to concerns with previous epidural complications and improvement of symptoms. mentating ok at this time, family members bedside agree pt is at baseline capacity. - pt given sepsis bolus fluids and started on ceftriaxone and vancomycin in ED, will stop per ID recommendations as pt with likely viral infection - ID consulted, recommend dc on doxy 100mg bid x7 days - Lyme and tick panel pending - follow up with PCP for testing results Elevated LFTs - initially AST 48, ALT 52, alk-phos normal, bilirubin normal; have trended down since - patient not having abdominal pain - LFTs likely related to fatty liver disease - hepatitis panel negative Acute Metabolic acidosis, resolved - Bicarb 20 -->23 - patient received 30 cc/kg fluid bolus Mild intermittent asthma, no acute exacerbation - not on home meds Obesity class III secondary to PCOS and excess calories - BMI 47.5 - weight loss encouraged - A1c WNL Time Attestation Discharge Coordination Time (in mins): 35 Quality: Safe Use of Opioids Does Pt have an Active Cancer Diagnosis on the Problem List?: No Quality: Stroke Does the patient have a stroke diagnosis?: No Physical Exam Exam: Exam: General: AOx3, no acute distress Resp: CTA bilaterally CVS: S1, S2, RRR GI: +BS, NT, no distention Skin: Warm, dry Neuro: Cranial nerves II-XII grossly intact bilaterally. Motor grossly intact bilaterally Extremities: No edema Psych: Appropriate affect Vital Signs: Vital Signs: Last Vital Signs Temp 98.4 F 12/21/24 15:53 Pulse 95 12/21/24 15:53 Resp 16 12/21/24 15:53 BP 107/74 12/21/24 15:53 Pulse Ox 95 12/21/24 15:53 O2 Del Method Room Air 12/21/24 15:53 BMI result Body Mass Index 47.5 DS: Data Data Completed and Pending Labs on day of discharge: Laboratory Results - last 24 hr 12/21/24 05:56 WBC 2.5 L RBC 3.89 L Hgb 10.7 L Hct 32.4 L MCV 83.3 MCH 27.5 MCHC 33.0 RDW 13.2 Plt Count 115 L MPV 12.7 H Immature Gran % (Auto) 0.4 Neut % (Auto) 34.3 L Lymph % (Auto) 42.5 H Williamson % (Auto) 13.0 H Eos % (Auto) 9.4 H Baso % (Auto) 0.4 Lymph # (Auto) 1.1 L Williamson # (Auto) 0.3 Eos # (Auto) 0.2 Baso # (Auto) 0.0 Abs Immat Gran (auto) 0.01 Absolute Neuts (auto) 0.9 L Absolute Nucleated RBC 0.000 Nucleated RBC % (auto) 0.0 Smear Tech's Comments VERIFIED Sodium 140 Potassium 3.5 Chloride 108 Carbon Dioxide 24 Anion Gap 12 BUN 9 Creatinine 0.72 Estim Creat Clear Calc 148.0 Estimated GFR > 60 Random Glucose 103 Calcium 8.1 L Total Bilirubin 0.3 AST 42 H ALT 41 H Alkaline Phosphatase 67 Total Protein 6.2 L Albumin 3.4 L HIV 1&2 Ab/P24 Ag 4thGn Nonreactive Preliminary micro results at discharge 12/19/24 16:42 Blood Culture - Preliminary Blood - Venous No growth after 48 hours. 12/19/24 16:42 Blood Culture - Preliminary Blood - Venous No growth after 48 hours. Discharge Plan Discharge Anticipated Discharge Date/Time: 12/21/24 17:13 Patient Disposition: Home, Self-Care Discharge Diagnosis: Fever of unknown origin meeting SIRS criteria Referrals: Physician,Unknown J [Primary Care Provider, Medical] - 1 Week Discharge Medications: New doxycycline monohydrate 100 mg tablet 100 mg PO BID Qty: 13 0RF Rx Instructions: Take one tablet twice a day with food for the next 6 days, ending 12/24. Complete entire course of antibiotics Discharge Orders: Discharge Order (Routine); Ordered 12/21/24 Ordered By: Gabby Kendrick Activity on Discharge: As tolerated Stand Alone Forms: Patient Portal Discharge page, Work/School Release Print Language: Ethiopian Care Plan Goals: See below Health Concerns: Fever of unknown origin SIRS/sepsis Acute encephalopathy Transaminitis Migraines Plan of Treatment: You were admitted to the hospital after presenting with a high fever, altered mental status, and meeting SIRS criteria. Workup in the hospital was negative and no infectious source has been identified: Urinalysis, head CT, CTA of chest, chest x-ray, MRI of brain, respiratory panel, syphilis, HIV, and urine toxicology all negative. Tick-borne illness panel still pending. You were initially treated with IV antibiotics which were then switched to oral doxycycline given negative workup and per Infectious Disease recommendations. Baseline mentation returned even prior to hospital admission. Vital signs have been stable. You have remained afebrile today without taking Tylenol. You feel better and wished to be discharged home. -- take doxycycline 100 mg twice a day with food for the next 6 days, ending on 12/27 -- follow up with PCP for results from tick-borne panel Assessment: See discharge summary Discharge Date/Time: 12/21/24 18:21
[2024-12-23 12:23] LABS: Lyme Disease DNA PCR NOT DETECTED (NOT DETECTED)
[2024-12-23 12:38] LABS: A. Phagocytphilium DNA,RT-PCR NOT DETECTED (NOT DETECTED); Babesia Microti DNA, RT-PCR NOT DETECTED (NOT DETECTED); Borrelia Miyamotoi,DNA RT-PCR NOT DETECTED (NOT DETECTED); E.Chaffeensis DNA RT-PCR NOT DETECTED (NOT DETECTED); Lyme(Borrelia ssp)DNA RT-PCR NOT DETECTED (NOT DETECTED)
== END 2024-12-21 18:21 | disposition home or self-care (01) | DRG 52 ==
LOC: HO.ED 20:47 → HO.EDOVER 20:51 → HO.S3 12-20 12:28
PROVIDERS: Physician Assistant; Admitting Provider Physician Assistant; Emergency Provider Student in an Organized Health Care Education/Training Program; Visit Provider Student in an Organized Health Care Education/Training Program
DX: G93.41 Metabolic encephalopathy (principal); E87.21 Acute metabolic acidosis; J45.20 Mild intermittent asthma, uncomplicated; E28.2 Polycystic ovarian syndrome; Z68.42 Body mass index [BMI] 45.0-49.9, adult; Z71.3 Dietary counseling and surveillance; K76.0 Fatty (change of) liver, not elsewhere classified; E66.813 Obesity, class 3; R65.10 Systemic inflammatory response syndrome (SIRS) of non-infectious origin without acute organ dysfunction; Z20.822 Contact with and (suspected) exposure to COVID-19
CPT/HCPCS: 36415; 70450; 70551; 71045; 71275; 80053; 80202; 80307; 81003; 81025; 82607; 82746; 83036; 83605; 84443; 84484; 84702; 85025; 86704; 86706; 86709; 86780; 86803; 87040; 87340; 87389; 87468; 87469; 87478; 87484; 87502; 87633; 87635; 87798; 93005; 99285; J0131; J0696; J1644; J3373; J3374; J7120; Q9967

== ENCOUNTER → 2024-12-19 16:05 | Outpatient (BNV) | payer OTHER, SELFPAY | PROVIDERS: Admitting Provider Physician Assistant; Emergency Provider Student in an Organized Health Care Education/Training Program; Visit Provider Internal Medicine Cardiovascular Disease | DX: R00.0 Tachycardia, unspecified (principal) | CPT/HCPCS: 93010 ==

== ENCOUNTER → 2024-12-19 16:06 | Outpatient (BNV) | payer OTHER, SELFPAY | PROVIDERS: Emergency Provider Student in an Organized Health Care Education/Training Program; Visit Provider Radiology Diagnostic Radiology | DX: J98.11 Atelectasis (principal); R51.9 Headache, unspecified; R06.02 Shortness of breath | CPT/HCPCS: 70450; 71045; 71275 ==

== ENCOUNTER 2024-12-19 20:46 | Outpatient (BNV) | payer OTHER, SELFPAY | END 2024-12-20 11:20 | PROVIDERS: Admitting Provider Physician Assistant; Emergency Provider Student in an Organized Health Care Education/Training Program; Visit Provider Radiology Diagnostic Radiology | DX: R41.82 Altered mental status, unspecified (principal); R51.9 Headache, unspecified | CPT/HCPCS: 70551 ==

== ENCOUNTER → 2024-12-19 20:46 | Outpatient (BNV) | payer OTHER, SELFPAY | PROVIDERS: Admitting Provider Physician Assistant; Emergency Provider Student in an Organized Health Care Education/Training Program; Visit Provider Student in an Organized Health Care Education/Training Program | DX: R50.9 Fever, unspecified (principal); R65.10 Systemic inflammatory response syndrome (SIRS) of non-infectious origin without acute organ dysfunction | CPT/HCPCS: 99223; 99233; 99239 ==

== ENCOUNTER → 2024-12-19 20:46 | Outpatient (BNV) | payer OTHER, SELFPAY | PROVIDERS: Admitting Provider Physician Assistant; Emergency Provider Student in an Organized Health Care Education/Training Program; Visit Provider Internal Medicine | DX: R41.82 Altered mental status, unspecified (principal); R50.9 Fever, unspecified | CPT/HCPCS: 99222 ==